=== PATIENT | female | born 1945 | race Caucasian/White ===

== ENCOUNTER 2018-07-19 11:20 | Emergency (ER) | payer MEDICARE ==
[~2018-07-19] VITALS: Ht 152.4 cm; Wt 73.9 kg
[2018-07-19 11:22] VITALS: BP_SYST 177
--- NOTE | 2018-07-19 11:22 | NUR ---
=Pt KYLEIGH [facility] and Placed in room 1. Placed on school bus monitor, blood pressure machine and pulse oximeter. To gown for exam. Side rails up. Addendum: 07/19/18 at 1129 by [email or web address] pt came in with 20 gauge to Left AC, placed by paramedics.
[2018-07-19] MEDS ORDERED: NITROGLYCERIN 1 INCH (GM) OINT. TP ONE (11:23)
[2018-07-19] MEDS ORDERED: MORPHINE 4 MG/ML INJ. SYRINGE IVP ONE (11:23)
--- NOTE | 2018-07-19 11:25 | NUR ---
Pt presents to ER brought in by [facility] and [facility], c/o chest pain 3/10 on pain scale that began this morning around 0800. Pt describes pain as non-radiating, pt denies sob, denies nausea or vomiting. Pt skin warm, dry. Pt reports taking 2 of Nitro at home, paramedics report giving 325mg of Aspirin en route to ER. Upon arrival pt describes pain as tolerable and rates as 3/10 on pain scale. Pt AOX4, speaking full sentences, respirations even and unlabored.
--- NOTE | 2018-07-19 11:25 | NUR ---
ER at bedside examining patient.
--- NOTE | 2018-07-19 11:35 | NUR ---
Pt refused administration of Morphine stating that it "does not make me feel good" and states that she would be ok without pain meds at the moment.
[2018-07-19 12:00] LABS: BASOPHILS % (AUTO) 0.5 % (0.0-2.0); EOSINOPHILS # (AUTO) 0.2 K/uL (0.0-0.4); EOSINOPHILS % (AUTO) 3.2 % (0.0-4.0); HEMATOCRIT 32.3 % (36-48); LYMPHOCYTES # (AUTO) 1.4 K/uL (1.0-5.5); MEAN CORPUSCULAR HEMOGLOBIN 30 pg (27-31); MEAN CORPUSCULAR HGB CONC 34 % (32-36); MEAN CORPUSCULAR VOLUME 88 fL (79.0-98.0); MONOCYTES # (AUTO) 0.3 K/uL (0.0-1.0); MONOCYTES % (AUTO) 3.9 % (1.7-9.3); NEUTROPHILS # (AUTO) 4.9 K/uL (1.8-7.7); NEUTROPHILS % (AUTO) 71.4 % (40.0-70.0); PLATELET COUNT (AUTO) 271 K/uL (130-430); RED BLOOD CELL COUNT(AUTO) 3.65 MIL/uL (4.2-6.2); RED CELL DISTRIBUTION WIDTH 14.2 % (9.0-15.0); WHITE BLOOD COUNT (AUTO) 6.8 K/uL (4.8-10.8)
[2018-07-19 12:11] LABS: ANION GAP 9 (5-15); CALCIUM 9.4 mg/dL (8.4-11.0); CHLORIDE 102 mmol/L (98-107); CREATININE 2.06 mg/dL (0.55-1.30); GLUCOSE 133 mg/dL (70-99); POTASSIUM 4.6 mmol/L (3.5-5.1); SODIUM SERUM 136 mmol/L (136-145); UREA NITROGEN, BLOOD 29 mg/dL (8-21)
[2018-07-19 12:15] LABS: INR 0.9 (0.8-1.2); PROTHROMBIN TIME 9.2 SECS (9.5-12.5)
[2018-07-19 12:16] LABS: ALANINE AMINOTRANSFERASE 38 U/L (12-78); ALBUMIN 3.1 g/dL (3.4-4.8); ASPARTATE AMINOTRANSFERASE 46 U/L (10-37); TOTAL BILIRUBIN 0.3 mg/dL (0.0-1.0)
--- NOTE | 2018-07-19 13:16 | NUR ---
Melisa from [facility] calls to inform that pt will be going to [facility] with the accepting physician Dr. Perez. Report to be called to [phone]. Pt to be transferred via ALS with ETA 14:15
--- NOTE | 2018-07-19 14:05 | NUR ---
Patient to be transferred to [facility]. Is being transferred due to higher level of care. Receiving facility has accepting physician and available space. ER physician has signed transfer form. Patient or responsible green party has agreed to transfer and signed form. Patient belongings inventoried and will be sent with patient. Copy of nursing notes, lab reports, EKG, Physicians Orders and X-rays to be sent with patient. Report called to Emmett at receiving facility. Receiving physician is Dr. Perez. [facility] ambulance service has been called for transfer.
[2018-07-19 14:10] VITALS: BP_SYST 136
== END 2018-07-19 14:10 | disposition short-term general hospital (02) ==
LOC: SED 11:20
DX: R07.89 Other chest pain (principal); E11.9 Type 2 diabetes mellitus without complications; I10 Essential (primary) hypertension; E03.9 Hypothyroidism, unspecified; E78.5 Hyperlipidemia, unspecified; K21.9 Gastro-esophageal reflux disease without esophagitis; F32.9 Major depressive disorder, single episode, unspecified; Z90.49 Acquired absence of other specified parts of digestive tract
CPT/HCPCS: 36415; 71045; 80053; 83880; 84484; 85025; 85379; 85610-TC; 85730-TC; 93005; 99285; J2270

== ENCOUNTER 2019-03-27 02:52 | Emergency (ER) | payer MEDICARE ==
[~2019-03-27] VITALS: Ht 152.4 cm; Wt 72.6 kg
[2019-03-27 02:56] VITALS: BP_SYST 142
[2019-03-27] MEDS ORDERED: NACL 0.9% 1,000 ML IV ONE (03:12)
[2019-03-27] MEDS ORDERED: DEXTROSE 50% JECT 50 ML DISP.SYRIN IVP ONE (03:15)
[2019-03-27 04:08] LABS: BASOPHILS # (AUTO) 0.1 K/uL (0.0-0.2); BASOPHILS % (AUTO) 0.8 % (0.0-2.0); EOSINOPHILS # (AUTO) 0.3 K/uL (0.0-0.4); EOSINOPHILS % (AUTO) 3.3 % (0.0-4.0); HEMATOCRIT 31.4 % (36-48); HEMOGLOBIN 10.5 g/dL (12.0-16.0); LYMPHOCYTES # (AUTO) 1.2 K/uL (1.0-5.5); LYMPHOCYTES % (AUTO) 15.1 % (20.5-51.5); MEAN CORPUSCULAR HEMOGLOBIN 30 pg (27-31); MEAN CORPUSCULAR HGB CONC 34 % (32-36); MEAN CORPUSCULAR VOLUME 90 fL (79.0-98.0); MONOCYTES # (AUTO) 0.6 K/uL (0.0-1.0); MONOCYTES % (AUTO) 8.2 % (1.7-9.3); NEUTROPHILS # (AUTO) 5.7 K/uL (1.8-7.7); NEUTROPHILS % (AUTO) 72.6 % (40.0-70.0); PLATELET COUNT (AUTO) 233 K/uL (130-430); RED BLOOD CELL COUNT(AUTO) 3.48 MIL/uL (4.2-6.2); RED CELL DISTRIBUTION WIDTH 15.1 % (9.0-15.0); WHITE BLOOD COUNT (AUTO) 7.9 K/uL (4.8-10.8)
[2019-03-27 04:18] LABS: ANION GAP 5 (5-15); CHLORIDE 101 mmol/L (98-107); CREATININE 1.58 mg/dL (0.55-1.30); GLUCOSE 114 mg/dL (70-99); POTASSIUM 3.4 mmol/L (3.5-5.1); SODIUM SERUM 134 mmol/L (136-145); UREA NITROGEN, BLOOD 38 mg/dL (8-21)
[2019-03-27 05:32] VITALS: BP_SYST 142
== END 2019-03-27 05:29 | disposition home or self-care (01) ==
LOC: SED 02:52
DX: E11.649 Type 2 diabetes mellitus with hypoglycemia without coma (principal); I12.9 Hypertensive chronic kidney disease with stage 1 through stage 4 chronic kidney disease, or unspecified chronic kidney disease; E11.22 Type 2 diabetes mellitus with diabetic chronic kidney disease; N18.9 Chronic kidney disease, unspecified; T38.3X5A Adverse effect of insulin and oral hypoglycemic [antidiabetic] drugs, initial encounter; Z85.038 Personal history of other malignant neoplasm of large intestine; Z90.49 Acquired absence of other specified parts of digestive tract; Y92.89 Other specified places as the place of occurrence of the external cause
CPT/HCPCS: 36415; 80048; 82962; 84484; 85025; 93005; 96361; 96374; 99284; J7030

== ENCOUNTER 2019-04-09 20:52 | Emergency (ER) | payer MEDICARE ==
[~2019-04-09] VITALS: Ht 152.4 cm; Wt 72.6 kg
[2019-04-09 20:55] VITALS: BP_SYST 160
--- NOTE | 2019-04-09 21:00 | NUR ---
Placed in room 1 . Placed on monitoring and evaluation advisor, blood pressure machine and pulse oximeter. To gown for exam. Side rails up. Report given to Mago GONSALVES.
--- NOTE | 2019-04-09 21:06 | NUR ---
PT AAOx4 ambulated into ED c/o 03/14 diffuse abdominal pain, vomiting, and diarrhea x 2 days. Pt denies dysuria/bloody emesis. Pt reports she takes daily iron and her stool is usually black in color. No other injuries/complaints per pt/noted. Will continue to monitor.
--- NOTE | 2019-04-09 21:27 | NUR ---
ER Dr. Hayes at bedside examining patient.
[2019-04-09 21:30] LABS: BASOPHILS % (AUTO) 0.3 % (0.0-2.0); EOSINOPHILS % (AUTO) 0.8 % (0.0-4.0); HEMATOCRIT 35.5 % (36-48); LYMPHOCYTES # (AUTO) 0.5 K/uL (1.0-5.5); LYMPHOCYTES % (AUTO) 7.9 % (20.5-51.5); MEAN CORPUSCULAR HEMOGLOBIN 31 pg (27-31); MEAN CORPUSCULAR HGB CONC 34 % (32-36); MEAN CORPUSCULAR VOLUME 91 fL (79.0-98.0); MONOCYTES # (AUTO) 0.4 K/uL (0.0-1.0); MONOCYTES % (AUTO) 6.5 % (1.7-9.3); NEUTROPHILS # (AUTO) 5.3 K/uL (1.8-7.7); NEUTROPHILS % (AUTO) 84.5 % (40.0-70.0); PLATELET COUNT (AUTO) 259 K/uL (130-430); RED CELL DISTRIBUTION WIDTH 15.5 % (9.0-15.0); WHITE BLOOD COUNT (AUTO) 6.3 K/uL (4.8-10.8)
[2019-04-09] MEDS ORDERED: ONDANSETRON HCL 4 MG/2 ML VIAL IVP ONE (21:30)
[2019-04-09] MEDS ORDERED: MORPHINE 2 MG/ML INJ. SYRINGE IVP ONE (21:30)
--- NOTE | 2019-04-09 21:42 | NUR ---
Pt had 1 episode of diarrhea on bed. Pt cleaned, changed, and assisted to position of comfort.
[2019-04-09] MEDS ORDERED: NS 500 ML IV ONE (21:45)
[2019-04-09 21:52] LABS: ANION GAP 9 (5-15); CALCIUM 8.9 mg/dL (8.4-11.0); CHLORIDE 101 mmol/L (98-107); CREATININE 1.98 mg/dL (0.55-1.30); GLUCOSE 259 mg/dL (70-99); POTASSIUM 4.2 mmol/L (3.5-5.1); SODIUM SERUM 133 mmol/L (136-145); UREA NITROGEN, BLOOD 43 mg/dL (8-21)
--- NOTE | 2019-04-09 22:02 | NUR ---
# 14 FR straight catheter with use of sterile technique. Immediate return of 50 cc yellow urine noted. Bedside drainage bag placed below level of bladder. Urine sample collected and sent to lab. Pt tolerated procedure well.
[2019-04-09 22:08] LABS: ALANINE AMINOTRANSFERASE 27 U/L (12-78); ALBUMIN 2.8 g/dL (3.4-4.8); ASPARTATE AMINOTRANSFERASE 21 U/L (10-37); LIPASE 155 U/L (73-393); TOTAL BILIRUBIN 0.4 mg/dL (0.0-1.0)
--- NOTE | 2019-04-09 22:17 | NUR ---
PT taken to radiology via gurney in stable condition
[2019-04-09 22:23] LABS: BILIRUBIN,URINE NEGATIVE (NEGATIVE); BLOOD, URINE NEGATIVE (NEGATIVE); CLARITY/URINE CLEAR (CLEAR); COLOR,URINE YELLOW (YELLOW); GLUCOSE,URINE NEGATIVE (NEGATIVE); KETONES,URINE NEGATIVE (NEGATIVE); LEUKOCYTE ESTERASE ,URINE TRACE (NEGATIVE); NITRITE, URINE NEGATIVE (NEGATIVE); PH,URINE 5.5 (5.0-8.0); PROTEIN URINE 2+ (NEGATIVE); UROBILINOGEN,URINE 0.2 (0.2-1.0)
[2019-04-09 22:31] LABS: BACTERIA,URINE MANY /HPF (None Seen); RBC,URINE 0-3 /HPF (0-3)
--- NOTE | 2019-04-09 22:52 | NUR ---
PT states she is feeling lightheaded. Room lights turned off per request. Dr. Hayes notified.
[2019-04-09] MEDS ORDERED: cefTRIAXone 1 GM VIAL IM ONE (23:15)
[2019-04-09] MEDS ORDERED: cefTRIAXone 1 GM in D5W 50 ML IV ONE (23:15)
--- NOTE | 2019-04-09 23:22 | NUR ---
Medications were given, pt toleratd well. No adverse reaction, will continue to monitor.
--- NOTE | 2019-04-09 23:23 | NUR ---
Report received from MAJOR Mercedes. All care endorsed.
[2019-04-09] MEDS ORDERED: cefTRIAXone 1 GM VIAL ONE (23:24)
[2019-04-10] MEDS ORDERED: AZITHROMYCIN 250 MG TABLET PO ONE
--- NOTE | 2019-04-10 00:10 | NUR ---
Dr. Hayes speaking with Dr. Sheffield from [facility] in regards to transferring patient.
--- NOTE | 2019-04-10 00:17 | NUR ---
Authorization number: [id number]
--- NOTE | 2019-04-10 00:41 | NUR ---
Medication was given, pt tolerated well. No adverse reaction, will continue to monitor.
[2019-04-10] MEDS ORDERED: fentaNYL CITRATE/PF 100 MCG/2 ML AMP IVP ONE (02:00)
[2019-04-10 02:46] VITALS: BP_SYST 145
--- NOTE | 2019-04-10 02:46 | NUR ---
Patient to be transferred to [facility]. Is being transferred due to higher level of care. Receiving facility has accepting physician and available space. ER physician has signed transfer form. Patient or responsible libertarian has agreed to transfer and signed form. Patient belongings inventoried and will be sent with patient. Copy of nursing notes, lab reports, EKG, Physicians Orders and X-rays to be sent with patient. Report called to Delio at receiving facility. Receiving physician is Dr. Melgar. [facility] ambulance service has been called for transfer.
--- NOTE | 2019-04-10 02:46 | NUR ---
Transfer to [facility]. IV present no signs or symptoms of infiltration.
== END 2019-04-10 02:46 | disposition short-term general hospital (02) ==
LOC: SED 20:52
DX: N39.0 Urinary tract infection, site not specified (principal); R10.13 Epigastric pain; R11.10 Vomiting, unspecified; R19.7 Diarrhea, unspecified
CPT/HCPCS: 36415; 71250; 74176; 80053; 81000; 82962; 83605; 83690; 84484; 85025; 87040; 87086; 93005; 96361; 96365; 96375; 99285; J0696; J2270; J2405; J3010; J7030; Q0144

== ENCOUNTER 2019-10-20 09:43 | Emergency (ER) | payer MEDICARE ==
[~2019-10-20] VITALS: Ht 152.4 cm; Wt 68.0 kg
[2019-10-20 09:49] VITALS: BP_SYST 130
--- NOTE | 2019-10-20 09:50 | NUR ---
Placed in room [address] recording monitor, blood pressure machine and pulse oximeter. To gown for exam. Side rails up.
--- NOTE | 2019-10-20 09:55 | NUR ---
GRACIELA Roe at bedside examining patient.
--- NOTE | 2019-10-20 09:58 | NUR ---
pt bib via BLS for graciela upper quadrant abd pain. Pt also reports dizziness w/ nausea. Pt also reports being treated for a yeast infection recently.
[2019-10-20] MEDS ORDERED: FLUCONAZOLE 200 MG TABLET (DIFLUCAN) PO ONE (10:00)
[2019-10-20] MEDS ORDERED: ONDANSETRON HCL 4 MG/2 ML VIAL IVP ONE (10:00)
[2019-10-20] MEDS ORDERED: NACL 0.9% 1,000 ML IV ONE (10:00)
--- NOTE | 2019-10-20 10:02 | NUR ---
# 20 gauge angiocath placed to RAC. Use of asceptic technique. Opsite placed over site. Blood return noted. Blood for lab drawn from site. Flushed with 10 cc of normal saline. No evidence of infiltration noted. Patient tolerated well.
--- NOTE | 2019-10-20 10:15 | NUR ---
medicated the pt w/ Zofran IVP. Will reassess
[2019-10-20 10:20] LABS: BASOPHILS # (AUTO) 0.1 K/uL (0.0-0.2); BASOPHILS % (AUTO) 1.4 % (0.0-2.0); EOSINOPHILS # (AUTO) 0.2 K/uL (0.0-0.4); EOSINOPHILS % (AUTO) 2.9 % (0.0-4.0); HEMOGLOBIN 10.7 g/dL (12.0-16.0); LYMPHOCYTES % (AUTO) 15.3 % (20.5-51.5); MEAN CORPUSCULAR HEMOGLOBIN 31 pg (27-31); MEAN CORPUSCULAR HGB CONC 34 % (32-36); MEAN CORPUSCULAR VOLUME 89 fL (79.0-98.0); MONOCYTES # (AUTO) 0.5 K/uL (0.0-1.0); MONOCYTES % (AUTO) 7.4 % (1.7-9.3); PLATELET COUNT (AUTO) 204 K/uL (130-430); RED BLOOD CELL COUNT(AUTO) 3.48 MIL/uL (4.2-6.2); RED CELL DISTRIBUTION WIDTH 15.1 % (9.0-15.0); WHITE BLOOD COUNT (AUTO) 6.9 K/uL (4.8-10.8)
[2019-10-20 10:27] LABS: ANION GAP 8 (5-15); CALCIUM 8.9 mg/dL (8.4-11.0); CHLORIDE 102 mmol/L (98-107); CREATININE 1.52 mg/dL (0.55-1.30); GLUCOSE 161 mg/dL (70-99); POTASSIUM 3.3 mmol/L (3.5-5.1); SODIUM SERUM 135 mmol/L (136-145); UREA NITROGEN, BLOOD 36 mg/dL (8-21)
[2019-10-20 10:32] LABS: ALANINE AMINOTRANSFERASE 22 U/L (12-78); ALBUMIN 2.7 g/dL (3.4-4.8); ASPARTATE AMINOTRANSFERASE 20 U/L (10-37); TOTAL BILIRUBIN 0.2 mg/dL (0.0-1.0)
[2019-10-20 10:43] LABS: BILIRUBIN,URINE NEGATIVE (NEGATIVE); CLARITY/URINE SL CLOUDY (CLEAR); COLOR,URINE YELLOW (YELLOW); GLUCOSE,URINE TRACE (NEGATIVE); KETONES,URINE NEGATIVE (NEGATIVE); LEUKOCYTE ESTERASE ,URINE NEGATIVE (NEGATIVE); NITRITE, URINE NEGATIVE (NEGATIVE); PH,URINE 5.5 (5.0-8.0); PROTEIN URINE 3+ (NEGATIVE); UROBILINOGEN,URINE 0.2 (0.2-1.0)
[2019-10-20] MEDS ORDERED: POTASSIUM CHLORIDE 10 MEQ TAB.PRT.SR PO ONE (10:45)
[2019-10-20 11:01] LABS: BLOOD, URINE TRACE (NEGATIVE)
[2019-10-20 11:10] LABS: BACTERIA,URINE MODERATE /HPF (None Seen); RBC,URINE 0-3 /HPF (0-3)
[2019-10-20] MEDS ORDERED: LACTULOSE 20 GM/30 ML UDC PO ONE (11:15)
--- NOTE | 2019-10-20 11:15 | NUR ---
UA obtained via straight cath. Sample collected and sent to the lab
--- NOTE | 2019-10-20 11:50 | NUR ---
Patient given written and verbal discharge instructions and verbalizes understanding. ER MD discussed with patient the results and treatment provided. Patient in stable condition. ID arm band removed. IV catheter removed intact and dressing applied, no active bleeding. Rx of Miralax given. Patient educated on pain management and to follow up with PMD. Pain Scale 3/10. Opportunity for questions provided and answered. Medication side effect fact sheet provided.
[2019-10-20 11:54] VITALS: BP_SYST 130
== END 2019-10-20 11:54 | disposition home or self-care (01) ==
LOC: SED 09:43
DX: K59.00 Constipation, unspecified (principal); R42 Dizziness and giddiness; B37.9 Candidiasis, unspecified; R11.0 Nausea; I10 Essential (primary) hypertension; E11.9 Type 2 diabetes mellitus without complications
CPT/HCPCS: 36415; 80053; 81000; 85025; 87086; 87186; 93005; 96374; 99284; J2405; J7030

== ENCOUNTER 2021-07-18 07:26 | Emergency (ER) | payer MEDICARE ==
[~2021-07-18] VITALS: Ht 154.9 cm; Wt 70.3 kg
[2021-07-18 07:30] VITALS: BP_SYST 162
--- NOTE | 2021-07-18 07:30 | NUR ---
BIB EMT FROM HOME FOR NAUSEA, CALM, ALERT, RESP UNLABORED, SKIN WARM AND DRY
--- NOTE | 2021-07-18 07:55 | NUR ---
DR MILLIGAN IN TO ASSESS
[2021-07-18] MEDS ORDERED: cloNIDine HCL 0.1 MG TABLET PO ONE (08:00)
[2021-07-18] MEDS ORDERED: KETOROLAC TROMETHAMINE 60 MG/2 ML VIAL IM ONE (08:00)
[2021-07-18] MEDS ORDERED: ONDANSETRON 4 MG ODT TAB PO ONE (08:00)
[2021-07-18 08:14] LABS: BASOPHILS # (AUTO) 0.1 K/uL (0.0-0.2); BASOPHILS % (AUTO) 0.8 % (0.0-2.0); EOSINOPHILS # (AUTO) 0.2 K/uL (0.0-0.4); EOSINOPHILS % (AUTO) 2.2 % (0.0-4.0); HEMATOCRIT 32.2 % (36-48); LYMPHOCYTES # (AUTO) 1.4 K/uL (1.0-5.5); LYMPHOCYTES % (AUTO) 19.4 % (20.5-51.5); MEAN CORPUSCULAR HEMOGLOBIN 31 pg (27-31); MEAN CORPUSCULAR HGB CONC 34 % (32-36); MEAN CORPUSCULAR VOLUME 90 fL (79.0-98.0); MONOCYTES # (AUTO) 0.4 K/uL (0.0-1.0); MONOCYTES % (AUTO) 6.4 % (1.7-9.3); NEUTROPHILS % (AUTO) 71.2 % (40.0-70.0); PLATELET COUNT (AUTO) 203 K/uL (130-430); RED BLOOD CELL COUNT(AUTO) 3.59 MIL/uL (4.2-6.2); RED CELL DISTRIBUTION WIDTH 14.1 % (9.0-15.0)
--- NOTE | 2021-07-18 08:15 | NUR ---
UP TO BSC, DENIES CP/SOB, CLEAR MENTATION AND SPEECH. NO DISTRESS
[2021-07-18 08:38] LABS: ANION GAP 8 (5-15); CALCIUM 8.8 mg/dL (8.4-11.0); CHLORIDE 98 mmol/L (98-107); CREATININE 2.92 mg/dL (0.55-1.30); POTASSIUM 4.2 mmol/L (3.5-5.1); SODIUM SERUM 134 mmol/L (136-145); UREA NITROGEN, BLOOD 47 mg/dL (8-21)
[2021-07-18 08:45] LABS: GLUCOSE 429 mg/dL (70-99)
[2021-07-18 08:48] LABS: ALANINE AMINOTRANSFERASE 17 U/L (12-78); ALBUMIN 2.5 g/dL (3.4-4.8); ASPARTATE AMINOTRANSFERASE 15 U/L (10-37); TOTAL BILIRUBIN 0.4 mg/dL (0.0-1.0)
[2021-07-18] MEDS ORDERED: INSULIN REGULAR, HUMAN 10 UNITS/0.1 ML INJ IVP ONE (09:00)
[2021-07-18] MEDS ORDERED: NACL 0.9% 1,000 ML IV ONE (09:00)
--- NOTE | 2021-07-18 09:00 | NUR ---
STATED FEELING BETTER, NO N,V. ALERT AND CALM, RESTING EASILY
[2021-07-18] MEDS ORDERED: ONDA-8 TL (09:20)
--- NOTE | 2021-07-18 09:50 | NUR ---
Patient given written and verbal discharge instructions and verbalizes understanding. ER MD discussed with patient the results and treatment provided. Patient in stable condition. ID arm band removed. IV catheter removed intact and dressing applied, no active bleeding. Patient educated on pain management and to follow up with PMD. Pain Scale . Opportunity for questions provided and answered.
[2021-07-18 10:21] VITALS: BP_SYST 156
[2021-07-18] MEDS ORDERED: LEVO750T45 PO (20:16)
== END 2021-07-18 10:21 | disposition home or self-care (01) ==
LOC: SED 07:26
DX: E11.65 Type 2 diabetes mellitus with hyperglycemia (principal); I10 Essential (primary) hypertension; Z79.899 Other long term (current) drug therapy
CPT/HCPCS: 36415; 71045; 80053; 82962; 83880; 84484; 85025; 96372; 96374; 99284; J1885; Q0162; 93005

== ENCOUNTER 2021-07-18 14:44 | Emergency (ER) | payer MEDICARE ==
[~2021-07-18] VITALS: Ht 152.4 cm; Wt 68.0 kg
[~2021-07-18 14:44] MED LIST: ONDA-8 TL
[2021-07-18 15:01] VITALS: BP_SYST 140
[2021-07-18 18:05] LABS: BASOPHILS # (AUTO) 0.1 K/uL (0.0-0.2); BASOPHILS % (AUTO) 0.7 % (0.0-2.0); EOSINOPHILS # (AUTO) 0.1 K/uL (0.0-0.4); EOSINOPHILS % (AUTO) 1.1 % (0.0-4.0); HEMATOCRIT 29.8 % (36-48); HEMOGLOBIN 10.2 g/dL (12.0-16.0); LYMPHOCYTES # (AUTO) 1.4 K/uL (1.0-5.5); MEAN CORPUSCULAR HEMOGLOBIN 30 pg (27-31); MEAN CORPUSCULAR HGB CONC 34 % (32-36); MEAN CORPUSCULAR VOLUME 88 fL (79.0-98.0); MONOCYTES # (AUTO) 0.6 K/uL (0.0-1.0); MONOCYTES % (AUTO) 7.4 % (1.7-9.3); NEUTROPHILS # (AUTO) 6.4 K/uL (1.8-7.7); NEUTROPHILS % (AUTO) 74.8 % (40.0-70.0); PLATELET COUNT (AUTO) 199 K/uL (130-430); RED BLOOD CELL COUNT(AUTO) 3.38 MIL/uL (4.2-6.2); RED CELL DISTRIBUTION WIDTH 13.8 % (9.0-15.0); WHITE BLOOD COUNT (AUTO) 8.6 K/uL (4.8-10.8)
[2021-07-18 18:28] LABS: ANION GAP 10 (5-15); CALCIUM 8.8 mg/dL (8.4-11.0); CHLORIDE 101 mmol/L (98-107); GLUCOSE 236 mg/dL (70-99); POTASSIUM 3.8 mmol/L (3.5-5.1); SODIUM SERUM 135 mmol/L (136-145); UREA NITROGEN, BLOOD 54 mg/dL (8-21)
[2021-07-18 18:34] LABS: ALANINE AMINOTRANSFERASE 17 U/L (12-78); ALBUMIN 2.4 g/dL (3.4-4.8); ASPARTATE AMINOTRANSFERASE 16 U/L (10-37); TOTAL BILIRUBIN 0.3 mg/dL (0.0-1.0)
[2021-07-18] MEDS ORDERED: NACL 0.9% 1,000 ML IV ONE (19:00)
[2021-07-18 19:04] LABS: BILIRUBIN,URINE NEGATIVE (NEGATIVE); BLOOD, URINE 2+ (NEGATIVE); CLARITY/URINE CLOUDY (CLEAR); COLOR,URINE YELLOW (YELLOW); GLUCOSE,URINE 2+ (NEGATIVE); KETONES,URINE NEGATIVE (NEGATIVE); LEUKOCYTE ESTERASE ,URINE 3+ (NEGATIVE); NITRITE, URINE NEGATIVE (NEGATIVE); PROTEIN URINE 3+ (NEGATIVE); UROBILINOGEN,URINE 0.2 (0.2-1.0)
[2021-07-18 19:25] LABS: BACTERIA,URINE MANY /HPF (None Seen); MUCUS,URINE None Seen /LPF (None Seen); RBC,URINE 20-50 /HPF (0-3); URINE AMORPHOUS URATE 4+ /HPF (None Seen); WBC,URINE >100 /HPF (0-3)
[2021-07-18] MEDS ORDERED: cefTRIAXone 1 GM in D5W 50 ML IV ONE (19:30)
[2021-07-18] MEDS ORDERED: cefTRIAXone 1 GM VIAL ONE (20:03)
[2021-07-18] MEDS ORDERED: LEVO750T45 PO (20:16)
[2021-07-19 02:13] VITALS: BP_SYST 138
== END 2021-07-18 21:47 | disposition home or self-care (01) ==
LOC: SED 14:44
DX: N12 Tubulo-interstitial nephritis, not specified as acute or chronic (principal); E11.65 Type 2 diabetes mellitus with hyperglycemia; I50.20 Unspecified systolic (congestive) heart failure; I10 Essential (primary) hypertension; Z79.899 Other long term (current) drug therapy
CPT/HCPCS: 36415; 80053; 81000; 82962; 83605; 83880; 84484; 85025; 87040; 87086; 96365; 99284; J0696; 93005

== ENCOUNTER 2023-04-27 13:13 | Emergency (ER) | payer MEDICARE ==
[~2023-04-27] VITALS: Ht 154.9 cm; Wt 77.1 kg
[~2023-04-27 13:13] MED LIST changes: +LEVO750T64 PO
[2023-04-27 13:15] VITALS: BP_SYST 165
[2023-04-27 15:31] LABS: BASOPHILS # (AUTO) 0.1 K/uL (0.0-0.2); BASOPHILS % (AUTO) 0.6 % (0.0-2.0); EOSINOPHILS # (AUTO) 0.1 K/uL (0.0-0.4); EOSINOPHILS % (AUTO) 0.6 % (0.0-4.0); HEMATOCRIT 31.1 % (36-48); HEMOGLOBIN 10.2 g/dL (12.0-16.0); LYMPHOCYTES # (AUTO) 0.6 K/uL (1.0-5.5); LYMPHOCYTES % (AUTO) 6.7 % (20.5-51.5); MEAN CORPUSCULAR HEMOGLOBIN 33 pg (27-31); MEAN CORPUSCULAR HGB CONC 33 % (32-36); MEAN CORPUSCULAR VOLUME 99 fL (79.0-98.0); MONOCYTES % (AUTO) 11.1 % (1.7-9.3); NEUTROPHILS # (AUTO) 7.1 K/uL (1.8-7.7); PLATELET COUNT (AUTO) 148 K/uL (130-430); RED BLOOD CELL COUNT(AUTO) 3.13 MIL/uL (4.2-6.2); RED CELL DISTRIBUTION WIDTH 16.6 % (9.0-15.0); WHITE BLOOD COUNT (AUTO) 8.8 K/uL (4.8-10.8)
[2023-04-27 15:37] LABS: ANION GAP 8 (5-15); CALCIUM 8.6 mg/dL (8.4-11.0); CHLORIDE 97 mmol/L (98-107); CREATININE 3.67 mg/dL (0.55-1.30); GLUCOSE 170 mg/dL (70-99); UREA NITROGEN, BLOOD 60 mg/dL (8-21)
[2023-04-27 15:44] LABS: ALANINE AMINOTRANSFERASE 34 U/L (12-78); ALBUMIN 2.9 g/dL (3.4-4.8); ASPARTATE AMINOTRANSFERASE 28 U/L (10-37); TOTAL BILIRUBIN 0.6 mg/dL (0.0-1.0)
[2023-04-27 18:25] VITALS: BP_SYST 156
== END 2023-04-27 18:25 | disposition home or self-care (01) ==
LOC: SED 13:13
DX: I12.9 Hypertensive chronic kidney disease with stage 1 through stage 4 chronic kidney disease, or unspecified chronic kidney disease (principal); E11.22 Type 2 diabetes mellitus with diabetic chronic kidney disease; N18.9 Chronic kidney disease, unspecified; M25.562 Pain in left knee; Z85.038 Personal history of other malignant neoplasm of large intestine; Z79.899 Other long term (current) drug therapy
CPT/HCPCS: 36415; 71045; 73564; 80053; 83880; 84484; 85025; 93005; 99285

== ENCOUNTER 2023-06-12 19:51 | Emergency (ER) | payer MEDICARE ==
[~2023-06-12] VITALS: Ht 152.4 cm; Wt 65.8 kg
[2023-06-12 20:16] VITALS: BP_SYST 144; PULSE 65; RESP 17; TEMP 97.1; O2SAT 95
[2023-06-12] MEDS ORDERED: ACETAMINOPHEN 325 MG TABLET PO ONE (21:15)
[2023-06-13 00:35] VITALS: BP_SYST 140; PULSE 68; RESP 15; TEMP 97.1; O2SAT 95
[2023-06-13] MEDS ORDERED: PROPOFOL DRIP 0 ML IV ONE (15:15)
== END 2023-06-13 00:35 | disposition short-term general hospital (02) ==
LOC: SED 19:51
DX: S70.01XA Contusion of right hip, initial encounter (principal); S05.91XA Unspecified injury of right eye and orbit, initial encounter; S09.90XA Unspecified injury of head, initial encounter; E11.9 Type 2 diabetes mellitus without complications; I10 Essential (primary) hypertension; Z85.038 Personal history of other malignant neoplasm of large intestine; Z79.899 Other long term (current) drug therapy; W22.8XXA Striking against or struck by other objects, initial encounter; X58.XXXA Exposure to other specified factors, initial encounter; Y93.89 Activity, other specified; Y92.89 Other specified places as the place of occurrence of the external cause; Y99.8 Other external cause status
CPT/HCPCS: 70450-TC; 70480; 73502; 76376; 99285; J2704

== ENCOUNTER 2023-08-11 17:39 | Emergency (ER) | payer MEDICARE ==
[~2023-08-11] VITALS: Ht 154.9 cm; Wt 63.5 kg
[2023-08-11 18:08] VITALS: BP_SYST 119; PULSE 72; RESP 19; TEMP 97.9; O2SAT 97
[2023-08-11 19:15] LABS: BASOPHILS % (AUTO) 0.6 % (0.0-2.0); EOSINOPHILS # (AUTO) 0.1 K/uL (0.0-0.4); EOSINOPHILS % (AUTO) 1.8 % (0.0-4.0); HEMATOCRIT 25.7 % (36-48); HEMOGLOBIN 8.4 g/dL (12.0-16.0); LYMPHOCYTES # (AUTO) 0.7 K/uL (1.0-5.5); LYMPHOCYTES % (AUTO) 10.8 % (20.5-51.5); MEAN CORPUSCULAR HEMOGLOBIN 33 pg (27-31); MEAN CORPUSCULAR HGB CONC 33 % (32-36); MEAN CORPUSCULAR VOLUME 100 fL (79.0-98.0); MONOCYTES # (AUTO) 0.7 K/uL (0.0-1.0); MONOCYTES % (AUTO) 10.7 % (1.7-9.3); NEUTROPHILS # (AUTO) 4.8 K/uL (1.8-7.7); NEUTROPHILS % (AUTO) 76.1 % (40.0-70.0); PLATELET COUNT (AUTO) 191 K/uL (130-430); RED BLOOD CELL COUNT(AUTO) 2.56 MIL/uL (4.2-6.2); RED CELL DISTRIBUTION WIDTH 16.9 % (9.0-15.0); WHITE BLOOD COUNT (AUTO) 6.3 K/uL (4.8-10.8)
[2023-08-11 19:27] LABS: ANION GAP 2 (5-15); CALCIUM 7.7 mg/dL (8.4-11.0); CARBON DIOXIDE 34 mmol/L (23-29); CHLORIDE 98 mmol/L (98-107); CREATININE 2.19 mg/dL (0.55-1.30); GLUCOSE 217 mg/dL (74-106); POTASSIUM 3.2 mmol/L (3.5-5.1); SODIUM SERUM 134 mmol/L (136-145); UREA NITROGEN, BLOOD 27 mg/dL (8-21)
[2023-08-11] MEDS ORDERED: LOPE2CAP PO (19:41)
[2023-08-11 20:35] VITALS: BP_SYST 143; PULSE 78; RESP 16; TEMP 98.1; O2SAT 95
== END 2023-08-11 20:35 | disposition home or self-care (01) ==
LOC: SED 17:39
DX: R04.0 Epistaxis (principal); R19.7 Diarrhea, unspecified; D64.9 Anemia, unspecified; E11.9 Type 2 diabetes mellitus without complications; I10 Essential (primary) hypertension; Z85.038 Personal history of other malignant neoplasm of large intestine; Z79.899 Other long term (current) drug therapy
CPT/HCPCS: 36415; 80048; 82962; 85025; 99283

== ENCOUNTER 2023-08-25 18:39 | Emergency (ER) | payer MEDICARE ==
[~2023-08-25] VITALS: Ht 152.4 cm; Wt 68.0 kg
[~2023-08-25 18:39] MED LIST changes: +LOPE2CAP PO
[2023-08-25 18:40] VITALS: BP_SYST 127; PULSE 87; RESP 18; TEMP 97.2; O2SAT 99
[2023-08-25 19:42] LABS: BASOPHILS # (AUTO) 0.1 K/uL (0.0-0.2); BASOPHILS % (AUTO) 1.4 % (0.0-2.0); EOSINOPHILS # (AUTO) 0.1 K/uL (0.0-0.4); EOSINOPHILS % (AUTO) 1.7 % (0.0-4.0); HEMATOCRIT 26.6 % (36-48); HEMOGLOBIN 8.5 g/dL (12.0-16.0); LYMPHOCYTES # (AUTO) 0.8 K/uL (1.0-5.5); LYMPHOCYTES % (AUTO) 15.9 % (20.5-51.5); MEAN CORPUSCULAR HEMOGLOBIN 33 pg (27-31); MEAN CORPUSCULAR HGB CONC 32 % (32-36); MEAN CORPUSCULAR VOLUME 103 fL (79.0-98.0); MONOCYTES # (AUTO) 0.6 K/uL (0.0-1.0); MONOCYTES % (AUTO) 13.1 % (1.7-9.3); NEUTROPHILS # (AUTO) 3.2 K/uL (1.8-7.7); NEUTROPHILS % (AUTO) 67.9 % (40.0-70.0); PLATELET COUNT (AUTO) 157 K/uL (130-430); RED BLOOD CELL COUNT(AUTO) 2.59 MIL/uL (4.2-6.2); RED CELL DISTRIBUTION WIDTH 17.5 % (9.0-15.0); WHITE BLOOD COUNT (AUTO) 4.7 K/uL (4.8-10.8)
[2023-08-25 19:45] LABS: ANION GAP 5 (5-15); CALCIUM 8.7 mg/dL (8.4-11.0); CARBON DIOXIDE 30 mmol/L (23-29); CHLORIDE 102 mmol/L (98-107); CREATININE 2.89 mg/dL (0.55-1.30); GLUCOSE 262 mg/dL (74-106); POTASSIUM 4.1 mmol/L (3.5-5.1); SODIUM SERUM 137 mmol/L (136-145); UREA NITROGEN, BLOOD 29 mg/dL (8-21)
[2023-08-25 19:49] LABS: ALANINE AMINOTRANSFERASE 22 U/L (12-78); ALBUMIN 2.1 g/dL (3.4-4.8); ASPARTATE AMINOTRANSFERASE 34 U/L (10-37); LIPASE 64 U/L (16-77); TOTAL BILIRUBIN 0.3 mg/dL (0.0-1.0); TOTAL PROTEIN, SERUM 5.4 g/dL (6.4-8.3)
[2023-08-25] MEDS ORDERED: NACL 0.9% 1,000 ML IV ONE (20:30)
[2023-08-25 22:49] LABS: BILIRUBIN,URINE NEGATIVE (NEGATIVE); BLOOD, URINE NEGATIVE (NEGATIVE); CLARITY/URINE SL CLOUDY (CLEAR); COLOR,URINE YELLOW (YELLOW); GLUCOSE,URINE NEGATIVE (NEGATIVE); KETONES,URINE NEGATIVE (NEGATIVE); LEUKOCYTE ESTERASE ,URINE 2+ (NEGATIVE); NITRITE, URINE NEGATIVE (NEGATIVE); PH,URINE 8.5 (5.0-8.0); PROTEIN URINE 2+ (NEGATIVE); UROBILINOGEN,URINE 0.2 (0.2-1.0)
[2023-08-25 23:05] LABS: BACTERIA,URINE FEW /HPF (None Seen); MUCUS,URINE None Seen /LPF (None Seen); RBC,URINE 0-3 /HPF (0-3); WBC,URINE 50-80 /HPF (0-3)
[2023-08-25] MEDS ORDERED: SULF1TAB48 PO (23:40)
[2023-08-25] MEDS ORDERED: SULFAMETHOXAZOLE/TRIMETHOPR DS 1 TABLET PO ONE (23:45)
[2023-08-26 01:03] VITALS: BP_SYST 131; PULSE 65; RESP 18; TEMP 98; O2SAT 95
== END 2023-08-26 01:03 | disposition home or self-care (01) ==
LOC: SED 18:39
DX: R10.11 Right upper quadrant pain (principal); R07.81 Pleurodynia; I12.9 Hypertensive chronic kidney disease with stage 1 through stage 4 chronic kidney disease, or unspecified chronic kidney disease; E11.22 Type 2 diabetes mellitus with diabetic chronic kidney disease; N18.9 Chronic kidney disease, unspecified; Z85.038 Personal history of other malignant neoplasm of large intestine; Z79.899 Other long term (current) drug therapy
CPT/HCPCS: 99285; 96360; 76705; 80053; 81001; 83690; 85025; 87086; 36415; 81000; 81015; J7030

== ENCOUNTER 2023-11-27 11:20 | Emergency (ER) | payer MEDICARE ==
[~2023-11-27] VITALS: Ht 157.5 cm; Wt 61.2 kg
[~2023-11-27 11:20] MED LIST changes: +SULF1TAB48 PO
[2023-11-27 11:30] VITALS: BP_SYST 107; PULSE 82; RESP 18; TEMP 96.8; O2SAT 96
[2023-11-27 12:08] LABS: BASOPHILS % (AUTO) 0.2 % (0.0-2.0); EOSINOPHILS % (AUTO) 0.2 % (0.0-4.0); HEMOGLOBIN 8.7 g/dL (12.0-16.0); LYMPHOCYTES # (AUTO) 0.5 K/uL (1.0-5.5); LYMPHOCYTES % (AUTO) 4.6 % (20.5-51.5); MEAN CORPUSCULAR HEMOGLOBIN 32 pg (27-31); MEAN CORPUSCULAR HGB CONC 33 % (32-36); MEAN CORPUSCULAR VOLUME 95 fL (79.0-98.0); MONOCYTES # (AUTO) 0.6 K/uL (0.0-1.0); NEUTROPHILS # (AUTO) 10.1 K/uL (1.8-7.7); PLATELET COUNT (AUTO) 180 K/uL (130-430); RED BLOOD CELL COUNT(AUTO) 2.73 MIL/uL (4.2-6.2); RED CELL DISTRIBUTION WIDTH 16.6 % (9.0-15.0); WHITE BLOOD COUNT (AUTO) 11.2 K/uL (4.8-10.8)
[2023-11-27] MEDS ORDERED: NOR10 PO (12:20)
[2023-11-27 12:23] LABS: ANION GAP 10 (5-15); CALCIUM 10.2 mg/dL (8.4-11.0); CARBON DIOXIDE 31 mmol/L (23-29); CHLORIDE 100 mmol/L (98-107); CREATININE 3.35 mg/dL (0.55-1.30); GLUCOSE 60 mg/dL (74-106); POTASSIUM 3.6 mmol/L (3.5-5.1); SODIUM SERUM 141 mmol/L (136-145); UREA NITROGEN, BLOOD 36 mg/dL (8-21)
[2023-11-27 12:26] LABS: PROTHROMBIN TIME 10.8 SECS (9.5-12.5)
[2023-11-27 12:36] LABS: ALANINE AMINOTRANSFERASE 10 U/L (12-78); ASPARTATE AMINOTRANSFERASE 30 U/L (10-37); BILIRUBIN,DIRECT 0.3 mg/dL (0.0-0.3); CREATINE KINASE, TOTAL 122 U/L (26-192); FREE T4 (FREE THYROXINE) 1.4 ng/dL (0.6-1.6); THYROID STIMULATING HORMONE 4.07 uIu/mL (0.34-4.82); TOTAL BILIRUBIN 0.6 mg/dL (0.0-1.0); TOTAL PROTEIN, SERUM 7.3 g/dL (6.4-8.3)
[2023-11-27 12:43] LABS: ACETONE, SERUM NEGATIVE (NEGATIVE)
[2023-11-27] MEDS ORDERED: CALC0.258 PO (12:46)
[2023-11-27] MEDS ORDERED: EFF37 PO (12:46)
[2023-11-27] MEDS ORDERED: ISOS30TA85 PO (12:46)
[2023-11-27] MEDS ORDERED: SYN50 PO (12:46)
[2023-11-27] MEDS ORDERED: DONE5TAB33 PO (12:46)
[2023-11-27] MEDS ORDERED: FURO40SO5 PO (12:46)
[2023-11-27] MEDS ORDERED: TRAZ150T77 PO (12:46)
[2023-11-27] MEDS ORDERED: MECO10005 (12:46)
[2023-11-27] MEDS ORDERED: ASPI-1393 PO (12:46)
[2023-11-27] MEDS ORDERED: INSU100V7 SUBCUT (12:46)
[2023-11-27] MEDS ORDERED: BISO5TAB15 PO (12:46)
[2023-11-27] MEDS ORDERED: HYDR100T25 PO (12:46)
[2023-11-27] MEDS ORDERED: SEVE800T8 PO (12:46)
[2023-11-27] MEDS ORDERED: LOSA-415 PO (12:46)
[2023-11-27] MEDS ORDERED: LIP40 PO (12:46)
[2023-11-27] MEDS ORDERED: B1/B1TAB5 PO (12:46)
[2023-11-27] MEDS ORDERED: cefTRIAXone 1 GM in D5W 50 ML IV ONE (13:45)
[2023-11-27 13:48] LABS: BILIRUBIN,URINE NEGATIVE (NEGATIVE); BLOOD, URINE NEGATIVE (NEGATIVE); CLARITY/URINE CLEAR (CLEAR); COLOR,URINE YELLOW (YELLOW); GLUCOSE,URINE NEGATIVE (NEGATIVE); KETONES,URINE TRACE (NEGATIVE); LEUKOCYTE ESTERASE ,URINE NEGATIVE (NEGATIVE); NITRITE, URINE NEGATIVE (NEGATIVE); PH,URINE 7.5 (5.0-8.0); PROTEIN URINE 2+ (NEGATIVE); UROBILINOGEN,URINE 0.2 (0.2-1.0)
[2023-11-27 14:06] LABS: BACTERIA,URINE RARE /HPF (None Seen); HYALINE CASTS, URINE 0-10 /LPF (None Seen); MUCUS,URINE 1+ /LPF (None Seen); RBC,URINE 0-3 /HPF (0-3)
[2023-11-27] MEDS ORDERED: cefTRIAXone 1 GM VIAL ONE (14:46)
[2023-11-27] MEDS ORDERED: LORazepam 2 MG/ML VIAL IVP ONE (15:15)
[2023-11-27 17:18] VITALS: BP_SYST 127; PULSE 76; RESP 18; TEMP 97.8; O2SAT 92
== END 2023-11-27 17:18 | disposition short-term general hospital (02) ==
LOC: SED 11:20
DX: N39.0 Urinary tract infection, site not specified (principal); N19 Unspecified kidney failure; R62.7 Adult failure to thrive; R79.89 Other specified abnormal findings of blood chemistry; R53.1 Weakness; E11.9 Type 2 diabetes mellitus without complications; I10 Essential (primary) hypertension; Z85.038 Personal history of other malignant neoplasm of large intestine; Z79.899 Other long term (current) drug therapy; Z20.822 Contact with and (suspected) exposure to COVID-19
CPT/HCPCS: 99285; 96365; 71045; 96375; 87426; 80076; 80048; 81001; 82009; 82550; 84439; 84443; 85025; 85610; 85730; 87040; 87086; 84484; 36415; 93005; 83605; 81000; 81015; J0696; J2060

== ENCOUNTER 2024-01-06 14:54 | Inpatient (IN) | payer MEDICARE ==
[~2024-01-06] VITALS: Ht 154.9 cm; Wt 54.0 kg
[~2024-01-06 14:54] MED LIST changes: +ASPI-1393 PO; +B1/B1TAB5 PO; +BISO5TAB15 PO; +CALC0.258 PO; +DONE5TAB33 PO; +EFF37 PO; +FURO40SO5 PO; +HYDR100T25 PO; +INSU100V7 SUBCUT; +ISOS30TA85 PO; -LEVO750T64 PO; +LIP40 PO; -LOPE2CAP PO; +LOSA-415 PO; +MECO10005; +NOR10 PO; +SEVE800T8 PO; -SULF1TAB48 PO; +SYN50 PO; +TRAZ150T77 PO
[2024-01-06 16:01] LABS: BASOPHILS # (AUTO) 0.1 K/uL (0.0-0.2); EOSINOPHILS # (AUTO) 0.2 K/uL (0.0-0.4); EOSINOPHILS % (AUTO) 2.6 % (0.0-4.0); HEMATOCRIT 33.1 % (36-48); HEMOGLOBIN 11.1 g/dL (12.0-16.0); LYMPHOCYTES # (AUTO) 0.6 K/uL (1.0-5.5); LYMPHOCYTES % (AUTO) 10.1 % (20.5-51.5); MEAN CORPUSCULAR HEMOGLOBIN 33 pg (27-31); MEAN CORPUSCULAR HGB CONC 34 % (32-36); MEAN CORPUSCULAR VOLUME 99 fL (79.0-98.0); MONOCYTES # (AUTO) 0.4 K/uL (0.0-1.0); MONOCYTES % (AUTO) 7.4 % (1.7-9.3); NEUTROPHILS # (AUTO) 4.8 K/uL (1.8-7.7); NEUTROPHILS % (AUTO) 78.9 % (40.0-70.0); PLATELET COUNT (AUTO) 192 K/uL (130-430); RED BLOOD CELL COUNT(AUTO) 3.34 MIL/uL (4.2-6.2); RED CELL DISTRIBUTION WIDTH 16.6 % (9.0-15.0)
[2024-01-06 16:09] LABS: ANION GAP 5 (5-15); CALCIUM 10.1 mg/dL (8.4-11.0); CARBON DIOXIDE 35 mmol/L (23-29); CHLORIDE 99 mmol/L (98-107); CREATININE 2.63 mg/dL (0.55-1.30); GLUCOSE 188 mg/dL (74-106); POTASSIUM 3.2 mmol/L (3.5-5.1); SODIUM SERUM 139 mmol/L (136-145); UREA NITROGEN, BLOOD 26 mg/dL (8-21)
[2024-01-06 16:12] LABS: INR 1.1 (0.8-1.2); PROTHROMBIN TIME 11.1 SECS (9.5-12.5)
[2024-01-06 16:38] LABS: BILIRUBIN,URINE NEGATIVE (NEGATIVE); BLOOD, URINE 2+ (NEGATIVE); CLARITY/URINE SL CLOUDY (CLEAR); COLOR,URINE YELLOW (YELLOW); GLUCOSE,URINE NEGATIVE (NEGATIVE); KETONES,URINE NEGATIVE (NEGATIVE); LEUKOCYTE ESTERASE ,URINE 3+ (NEGATIVE); NITRITE, URINE NEGATIVE (NEGATIVE); PROTEIN URINE 2+ (NEGATIVE); UROBILINOGEN,URINE 0.2 (0.2-1.0)
[2024-01-06 16:43] LABS: ALANINE AMINOTRANSFERASE 12 U/L (12-78); ALBUMIN 3.1 g/dL (3.4-4.8); AMYLASE 34 U/L (0-100); ASPARTATE AMINOTRANSFERASE 14 U/L (10-37); BILIRUBIN,DIRECT 0.2 mg/dL (0.0-0.3); LIPASE 45 U/L (16-77); TOTAL BILIRUBIN 0.5 mg/dL (0.0-1.0); TOTAL PROTEIN, SERUM 6.7 g/dL (6.4-8.3)
[2024-01-06 16:49] LABS: BACTERIA,URINE MODERATE /HPF (None Seen); MUCUS,URINE None Seen /LPF (None Seen); WBC,URINE 80-100 /HPF (0-3)
[2024-01-06] MEDS ORDERED: HYDROcodone/ACETAMIN 5-325 MG TAB (NORCO/ VICODIN) PO PRN (17:30)
[2024-01-06] MEDS ORDERED: ACETAMINOPHEN 325 MG TABLET PO PRN (17:30)
[2024-01-06] MEDS: ASPIRIN 81 MG TABLET(ECOTRIN) PO ONE (17:41)
[2024-01-06] MEDS: HYDROcodone/ACETAMIN 10-325 MG TAB PO PRN (17:42)
[2024-01-06] MEDS ORDERED: TRANEXAMIC ACID 1,000 MG/10 ML VIAL ONE (18:49)
[2024-01-06 20:26] VITALS: BP_SYST 146; PULSE 89; RESP 16; TEMP 97.2; O2SAT 98
[2024-01-06] MEDS ORDERED: hydrALAZINE HCL 20 MG/ML VIAL IVP PRN (22:00)
[2024-01-06] MEDS ORDERED: HEPARIN SODIUM,PORCINE 3000 UNITS/0.6 ML BOLUS IVP PRN (23:15)
[2024-01-06] MEDS ORDERED: HEPARIN SODIUM,PORCINE 2000 UNITS/0.4 ML BOLUS IVP PRN (23:15)
[2024-01-06] MEDS: ATORVASTATIN 20 MG TABLET PO SCH (23:43)
[2024-01-06] MEDS: ASPIRIN 81 MG TAB.CHEW PO ONE (23:43)
[2024-01-06] MEDS: CARVEDILOL 6.25 MG TABLET (COREG) PO SCH (23:43)
[2024-01-06] MEDS: HEPARIN SODIUM,PORCINE 5,000 UNITS/ML VIAL IVP SCH (23:55)
[2024-01-07] VITALS (8 sets, daily range): BP systolic 134–159; PULSE 77–96; RESP 17–19; TEMP 96.6–98.4; O2SAT 97–99
[2024-01-07] MEDS: HEPARIN 25,000 UNITS in 250 ML PREMIX IV PRN (00:01)
[2024-01-07] MEDS: PANTOPRAZOLE SODIUM 40 MG TAB PO SCH (08:28)
[2024-01-07] MEDS: ASPIRIN 81 MG TABLET(ECOTRIN) PO SCH (08:28)
[2024-01-07] MEDS ORDERED: LORazepam 2 MG/ML VIAL IVP PRN (10:00)
[2024-01-07] MEDS ORDERED: B2 PO SCH (10:00)
[2024-01-07] MEDS ORDERED: B1 PO SCH (10:00)
[2024-01-07] MEDS ORDERED: B12 PO SCH (10:00)
[2024-01-07] MEDS ORDERED: PROTEASE PO SCH (10:00)
[2024-01-07] MEDS ORDERED: [UNRECOGNIZED DRUG - OTHER] PO SCH (10:00)
[2024-01-07] MEDS ORDERED: NIACIN PO SCH (10:00)
[2024-01-07] MEDS ORDERED: ONDANSETRON HCL 4 MG/2 ML VIAL IVP PRN (10:00)
[2024-01-07] MEDS ORDERED: ASPIRIN 81 MG TABLET(ECOTRIN) PO SCH (10:00)
[2024-01-07 10:21] LABS: BASOPHILS % (AUTO) 0.5 % (0.0-2.0); EOSINOPHILS # (AUTO) 0.2 K/uL (0.0-0.4); EOSINOPHILS % (AUTO) 3.7 % (0.0-4.0); HEMATOCRIT 29.8 % (36-48); LYMPHOCYTES # (AUTO) 0.5 K/uL (1.0-5.5); LYMPHOCYTES % (AUTO) 8.4 % (20.5-51.5); MEAN CORPUSCULAR HEMOGLOBIN 33 pg (27-31); MEAN CORPUSCULAR HGB CONC 34 % (32-36); MEAN CORPUSCULAR VOLUME 99 fL (79.0-98.0); MONOCYTES # (AUTO) 0.5 K/uL (0.0-1.0); MONOCYTES % (AUTO) 7.4 % (1.7-9.3); PLATELET COUNT (AUTO) 155 K/uL (130-430); RED BLOOD CELL COUNT(AUTO) 3.03 MIL/uL (4.2-6.2); RED CELL DISTRIBUTION WIDTH 16.4 % (9.0-15.0); WHITE BLOOD COUNT (AUTO) 6.2 K/uL (4.8-10.8)
[2024-01-07 10:34] LABS: ALANINE AMINOTRANSFERASE 11 U/L (12-78); ALBUMIN 2.8 g/dL (3.4-4.8); ANION GAP 5 (5-15); ASPARTATE AMINOTRANSFERASE 23 U/L (10-37); CARBON DIOXIDE 33 mmol/L (23-29); CHLORIDE 99 mmol/L (98-107); CREATININE 2.96 mg/dL (0.55-1.30); GLUCOSE 157 mg/dL (74-106); POTASSIUM 3.8 mmol/L (3.5-5.1); SODIUM SERUM 137 mmol/L (136-145); TOTAL BILIRUBIN 0.4 mg/dL (0.0-1.0); TOTAL PROTEIN, SERUM 6.2 g/dL (6.4-8.3); UREA NITROGEN, BLOOD 30 mg/dL (8-21)
[2024-01-07] MEDS: LEVOTHYROXINE SODIUM 0.05 MG TABLET PO ONE (11:38)
[2024-01-07] MEDS: VITAMIN B COMPLEX 1 CAP/TAB PO ONE (11:38)
[2024-01-07] MEDS: amLODIPine BESYLATE 10 MG TABLET PO ONE (11:41)
[2024-01-07] MEDS: ISOSORBIDE MONONITRATE 30 MG TAB.ER.24H PO ONE (11:42)
[2024-01-07] MEDS: CYANOCOBALAMIN (VITAMIN B-12) 1,000 MCG TABLET PO ONE (11:43)
[2024-01-07] MEDS: INSULIN REGULAR, HUMAN 100 UNITS/ML, 3 ML VIAL (humuLIN R) SUBCUT PRN (11:50)
[2024-01-07] MEDS: Effexor 37.5 MG TAB PO ONE (12:19)
[2024-01-07] MEDS: calcitrioL 0.25 MCG CAPSULE PO ONE (12:23)
[2024-01-07] MEDS: SEVELAMER CARBONATE 800 MG TABLET PO SCH (12:55)
[2024-01-07] MEDS: cefTRIAXone 1 GM IVPB PREMIX 50 ML IV ONE (12:55)
[2024-01-07] MEDS: NORMAL SALINE 5 ML DISP.SYRIN IVF SCH (12:56)
[2024-01-07] MEDS ORDERED: DONE10TA44 PO (13:50)
[2024-01-07] MEDS ORDERED: CYAN500T47 PO (13:50)
[2024-01-07] MEDS ORDERED: ERGO1250 PO (13:50)
[2024-01-07] MEDS ORDERED: FURO40TA5 PO (13:50)
[2024-01-07] MEDS ORDERED: VITA1CAP PO (13:50)
[2024-01-07] MEDS ORDERED: VENL150C4 PO (13:50)
[2024-01-07] MEDS ORDERED: ISOS10TA8 PO (13:50)
[2024-01-07] MEDS ORDERED: ISOS30TA9 PO (14:00)
[2024-01-07] MEDS ORDERED: ATOR-1 PO (14:36)
[2024-01-07] MEDS: hydrALAZINE HCL 25 MG TABLET PO SCH (14:39)
[2024-01-07] MEDS ORDERED: traZODone HCL 50 MG TABLET (DESYREL) PO SCH (21:00)
[2024-01-07] MEDS: LOSARTAN POTASSIUM 50 MG TABLET (COZAAR) PO SCH (21:00)
[2024-01-07] MEDS ORDERED: ATORVASTATIN 20 MG TABLET PO SCH (21:00)
[2024-01-07] MEDS ORDERED: DONEPEZIL HCL 5 MG TABLET (ARICEPT) PO SCH (21:00)
[2024-01-07] MEDS: CARVEDILOL 12.5 MG TABLET (COREG) PO SCH (21:00)
[2024-01-07] MEDS ORDERED: BISOPROLOL FUMARATE 5 MG TABLET PO SCH (21:00)
[2024-01-07] MEDS ORDERED: *HEPARIN PER PHARMACY XX PRN (22:00)
[2024-01-07] MEDS ORDERED: HEPARIN SODIUM,PORCINE 5,000 UNITS/ML VIAL IVP ONE (23:15)
[2024-01-08] MEDS ORDERED: LEVOTHYROXINE SODIUM 0.05 MG TABLET PO SCH (07:00)
[2024-01-08] MEDS ORDERED: PANTOPRAZOLE SODIUM 40 MG/VIAL (PROTONIX) IVP SCH (09:00)
[2024-01-08] MEDS ORDERED: ISOSORBIDE MONONITRATE 30 MG TAB.ER.24H PO SCH (09:00)
[2024-01-08] MEDS ORDERED: cefTRIAXone 1 GM IVPB PREMIX 50 ML IV SCH (09:00)
[2024-01-08] MEDS ORDERED: CYANOCOBALAMIN (VITAMIN B-12) 1,000 MCG TABLET PO SCH (09:00)
[2024-01-08] MEDS ORDERED: Effexor 37.5 MG TAB PO SCH (09:00)
[2024-01-08] MEDS ORDERED: VITAMIN B COMPLEX 1 CAP/TAB PO SCH (09:00)
[2024-01-08] MEDS ORDERED: amLODIPine BESYLATE 10 MG TABLET PO SCH (09:00)
[2024-01-09] MEDS ORDERED: calcitrioL 0.25 MCG CAPSULE PO SCH (12:00)
[2024-01-09] MEDS ORDERED: EPOETIN ALFA-EPBX 4,000 UNITS/ML VIAL SUBCUT SCH (17:00)
== END 2024-01-07 22:10 | disposition short-term general hospital (02) | DRG 280 ==
LOC: SED 14:54 → STU 17:21
PROVIDERS: ADMIT Preventive Medicine Preventive Medicine/Occupational Environmental Medicine; ATTEND Preventive Medicine Preventive Medicine/Occupational Environmental Medicine
PROC: 5A1D70Z Performance of Urinary Filtration, Intermittent, Less than 6 Hours Per Day (ICD-10-PCS; principal; 2024-01-07)
DX: I21.4 Non-ST elevation (NSTEMI) myocardial infarction (principal); N18.6 End stage renal disease; N17.9 Acute kidney failure, unspecified; N39.0 Urinary tract infection, site not specified; I12.0 Hypertensive chronic kidney disease with stage 5 chronic kidney disease or end stage renal disease; Z20.822 Contact with and (suspected) exposure to COVID-19; F03.90 Unspecified dementia, unspecified severity, without behavioral disturbance, psychotic disturbance, mood disturbance, and anxiety; I25.10 Atherosclerotic heart disease of native coronary artery without angina pectoris; E03.9 Hypothyroidism, unspecified; E78.5 Hyperlipidemia, unspecified; N31.9 Neuromuscular dysfunction of bladder, unspecified; D63.1 Anemia in chronic kidney disease; E87.6 Hypokalemia; E11.65 Type 2 diabetes mellitus with hyperglycemia; E88.09 Other disorders of plasma-protein metabolism, not elsewhere classified; E11.22 Type 2 diabetes mellitus with diabetic chronic kidney disease; Z85.038 Personal history of other malignant neoplasm of large intestine; Z90.49 Acquired absence of other specified parts of digestive tract; Z99.2 Dependence on renal dialysis
CPT/HCPCS: 36415; 80048; 80053; 80076; 81000; 81001; 81015; 82150; 82948; 83690; 84484; 85025; 85610; 85730; 87040; 87086; 90935; 93005; 93306; 99285; G0378; J0696; J1644; J1815; J3490

== ENCOUNTER 2024-01-15 14:08 | Inpatient (IN) | payer MEDICARE ==
[~2024-01-15] VITALS: Ht 124.5 cm; Wt 43.1 kg
[~2024-01-15 14:08] MED LIST changes: +ATOR-1 PO; -B1/B1TAB5 PO; +CYAN500T47 PO; +DONE10TA44 PO; -DONE5TAB33 PO; -EFF37 PO; +ERGO1250 PO; -FURO40SO5 PO; +FURO40TA5 PO; -LIP40 PO; -MECO10005; -ONDA-8 TL; +VENL150C4 PO; +VITA1CAP PO
[2024-01-15 14:27] VITALS: BP_SYST 165; PULSE 78; RESP 18; TEMP 97.8; O2SAT 100
[2024-01-15 15:22] LABS: BASOPHILS # (AUTO) 0.1 K/uL (0.0-0.2); EOSINOPHILS # (AUTO) 0.1 K/uL (0.0-0.4); EOSINOPHILS % (AUTO) 1.8 % (0.0-4.0); HEMATOCRIT 38.6 % (36-48); HEMOGLOBIN 12.9 g/dL (12.0-16.0); LYMPHOCYTES # (AUTO) 0.8 K/uL (1.0-5.5); LYMPHOCYTES % (AUTO) 15.1 % (20.5-51.5); MEAN CORPUSCULAR HEMOGLOBIN 33 pg (27-31); MEAN CORPUSCULAR HGB CONC 34 % (32-36); MEAN CORPUSCULAR VOLUME 100 fL (79.0-98.0); MONOCYTES # (AUTO) 0.6 K/uL (0.0-1.0); MONOCYTES % (AUTO) 10.3 % (1.7-9.3); NEUTROPHILS # (AUTO) 3.9 K/uL (1.8-7.7); NEUTROPHILS % (AUTO) 71.8 % (40.0-70.0); PLATELET COUNT (AUTO) 225 K/uL (130-430); RED BLOOD CELL COUNT(AUTO) 3.88 MIL/uL (4.2-6.2); RED CELL DISTRIBUTION WIDTH 16.8 % (9.0-15.0); WHITE BLOOD COUNT (AUTO) 5.4 K/uL (4.8-10.8)
[2024-01-15 15:40] LABS: ANION GAP 7 (5-15); CALCIUM 9.6 mg/dL (8.4-11.0); CARBON DIOXIDE 33 mmol/L (23-29); CHLORIDE 99 mmol/L (98-107); CREATININE 2.82 mg/dL (0.55-1.30); GLUCOSE 172 mg/dL (74-106); POTASSIUM 3.3 mmol/L (3.5-5.1); SODIUM SERUM 139 mmol/L (136-145); UREA NITROGEN, BLOOD 23 mg/dL (8-21)
[2024-01-15 15:44] LABS: ALANINE AMINOTRANSFERASE 22 U/L (12-78); ALBUMIN 3.4 g/dL (3.4-4.8); ASPARTATE AMINOTRANSFERASE 16 U/L (10-37); BILIRUBIN,DIRECT 0.2 mg/dL (0.0-0.3); LIPASE 106 U/L (16-77); TOTAL BILIRUBIN 0.6 mg/dL (0.0-1.0); TOTAL PROTEIN, SERUM 7.2 g/dL (6.4-8.3)
[2024-01-15 15:53] LABS: BILIRUBIN,URINE 1+ (NEGATIVE); BLOOD, URINE NEGATIVE (NEGATIVE); CLARITY/URINE CLEAR (CLEAR); COLOR,URINE YELLOW (YELLOW); GLUCOSE,URINE NEGATIVE (NEGATIVE); KETONES,URINE TRACE (NEGATIVE); LEUKOCYTE ESTERASE ,URINE 1+ (NEGATIVE); NITRITE, URINE POSITIVE (NEGATIVE); PH,URINE 5.5 (5.0-8.0); PROTEIN URINE 1+ (NEGATIVE); UROBILINOGEN,URINE 0.2 (0.2-1.0)
[2024-01-15 16:09] LABS: YEAST,URINE Few /HPF (None Seen)
[2024-01-15 16:10] LABS: RBC,URINE 0-3 /HPF (0-3)
[2024-01-15 16:11] LABS: BACTERIA,URINE FEW /HPF (None Seen)
[2024-01-15] MEDS: cefTRIAXone 1 GM VIAL IM ONE (17:55)
[2024-01-15] MEDS: POTASSIUM CHLORIDE 20 MEQ/PKT PACKET PO ONE (20:09)
[2024-01-15] MEDS ORDERED: HYDROcodone/ACETAMIN 5-325 MG TAB (NORCO/ VICODIN) PO PRN (21:00)
[2024-01-15] MEDS ORDERED: DEXTROSE 50% JECT 50 ML DISP.SYRIN IVP PRN (21:00)
[2024-01-15] MEDS ORDERED: IPRATROPIUM BROM 0.5 MG/2.5 ML VIAL.NEB (ATROVENT) INH PRN (21:00)
[2024-01-15] MEDS ORDERED: ONDANSETRON HCL 4 MG/2 ML VIAL IVP PRN (21:00)
[2024-01-15] MEDS ORDERED: ALBUTEROL SULFATE 0.083% 2.5 MG/3 ML VIAL.NEB INH PRN (21:00)
[2024-01-15] MEDS ORDERED: HYDROcodone/ACETAMIN 10-325 MG TAB PO PRN (21:00)
[2024-01-15] MEDS ORDERED: ACETAMINOPHEN 325 MG TABLET PO PRN (21:00)
[2024-01-15] MEDS ORDERED: DEXTROSE 50% JECT 50 ML DISP.SYRIN ONE (21:10)
[2024-01-15] MEDS ORDERED: INSULIN Lispro 100 UNITS/ML, 3 ML VIAL (humaLOG) ONE (21:49)
[2024-01-15] MEDS: INSULIN LISPRO SLIDING SCALE 100 UNITS/ML, 3 ML VIAL (humaLOG) SUBCUT PRN (21:50)
[2024-01-15] MEDS: CARVEDILOL 6.25 MG TABLET (COREG) PO SCH (21:54)
[2024-01-15 22:30] VITALS: O2SAT 96
[2024-01-15] MEDS ORDERED: hydrALAZINE HCL 20 MG/ML VIAL IVP PRN (22:30)
[2024-01-15] MEDS: DONEPEZIL HCL 5 MG TABLET (ARICEPT) PO SCH (23:06)
[2024-01-15] MEDS: traZODone HCL 50 MG TABLET (DESYREL) PO PRN (23:06)
[2024-01-15] MEDS: ATORVASTATIN 20 MG TABLET PO SCH (23:06)
[2024-01-15 23:56] LABS: BILIRUBIN,URINE 1+ (NEGATIVE); BLOOD, URINE NEGATIVE (NEGATIVE); CLARITY/URINE CLOUDY (CLEAR); COLOR,URINE YELLOW (YELLOW); GLUCOSE,URINE NEGATIVE (NEGATIVE); KETONES,URINE TRACE (NEGATIVE); LEUKOCYTE ESTERASE ,URINE 2+ (NEGATIVE); NITRITE, URINE NEGATIVE (NEGATIVE); PROTEIN URINE 2+ (NEGATIVE); UROBILINOGEN,URINE 0.2 (0.2-1.0)
[2024-01-16] VITALS (8 sets, daily range): BP systolic 126–157; PULSE 70–88; RESP 17–20; TEMP 96.9–98; O2SAT 95–100
[2024-01-16 00:31] LABS: BACTERIA,URINE MODERATE /HPF (None Seen); RBC,URINE 0-3 /HPF (0-3); WBC,URINE >100 /HPF (0-3); YEAST,URINE Moderate /HPF (None Seen)
[2024-01-16] MEDS: LORazepam 2 MG/ML VIAL IVP PRN (00:56)
[2024-01-16 05:15] LABS: BASOPHILS # (AUTO) 0.1 K/uL (0.0-0.2); BASOPHILS % (AUTO) 1.3 % (0.0-2.0); EOSINOPHILS # (AUTO) 0.3 K/uL (0.0-0.4); EOSINOPHILS % (AUTO) 4.2 % (0.0-4.0); HEMATOCRIT 35.4 % (36-48); HEMOGLOBIN 11.8 g/dL (12.0-16.0); LYMPHOCYTES # (AUTO) 1.1 K/uL (1.0-5.5); LYMPHOCYTES % (AUTO) 16.6 % (20.5-51.5); MEAN CORPUSCULAR HEMOGLOBIN 33 pg (27-31); MEAN CORPUSCULAR HGB CONC 33 % (32-36); MEAN CORPUSCULAR VOLUME 100 fL (79.0-98.0); MONOCYTES # (AUTO) 0.9 K/uL (0.0-1.0); MONOCYTES % (AUTO) 13.6 % (1.7-9.3); NEUTROPHILS # (AUTO) 4.4 K/uL (1.8-7.7); NEUTROPHILS % (AUTO) 64.3 % (40.0-70.0); PLATELET COUNT (AUTO) 195 K/uL (130-430); RED BLOOD CELL COUNT(AUTO) 3.56 MIL/uL (4.2-6.2); RED CELL DISTRIBUTION WIDTH 17.1 % (9.0-15.0); WHITE BLOOD COUNT (AUTO) 6.8 K/uL (4.8-10.8)
[2024-01-16 05:32] LABS: ANION GAP 5 (5-15); CALCIUM 9.2 mg/dL (8.4-11.0); CARBON DIOXIDE 30 mmol/L (23-29); CHLORIDE 102 mmol/L (98-107); CREATININE 2.98 mg/dL (0.55-1.30); GLUCOSE 85 mg/dL (74-106); POTASSIUM 3.6 mmol/L (3.5-5.1); SODIUM SERUM 137 mmol/L (136-145); UREA NITROGEN, BLOOD 26 mg/dL (8-21)
[2024-01-16] MEDS: LEVOTHYROXINE SODIUM 0.05 MG TABLET PO SCH (06:45)
[2024-01-16] MEDS: ASPIRIN 81 MG TAB.CHEW PO SCH (10:28)
[2024-01-16] MEDS: LOSARTAN POTASSIUM 50 MG TABLET (COZAAR) PO SCH (10:32)
[2024-01-16] MEDS: PANTOPRAZOLE SODIUM 40 MG TAB PO ONE (12:20)
[2024-01-16] MEDS: POLYETHYLENE GLYCOL 3350, 17 GM/ POWD.PACK PO ONE (12:20)
[2024-01-16] MEDS ORDERED: iohexoL 350 mgI/mL, 100 ML INFUS..BTL IV ONE (15:55)
[2024-01-16] MEDS: cefTRIAXone 1 GM in D5W 50 ML IV SCH (18:00)
[2024-01-16] MEDS ORDERED: DOCUSATE SODIUM 100 MG CAPSULE PO SCH (21:00)
[2024-01-16] MEDS ORDERED: HEPARIN SODIUM,PORCINE 5,000 UNITS/ML VIAL SUBCUT SCH (21:00)
[2024-01-16] MEDS ORDERED: SENNA 8.8 MG/5 ML UDC GT SCH (21:00)
[2024-01-17] MEDS ORDERED: LOSARTAN POTASSIUM 25 MG TABLET PO SCH (09:00)
[2024-01-17] MEDS ORDERED: ATORVASTATIN 20 MG TABLET PO SCH (09:00)
[2024-01-17] MEDS ORDERED: PANTOPRAZOLE SODIUM 40 MG TAB PO SCH (09:00)
[2024-01-17] MEDS ORDERED: POLYETHYLENE GLYCOL 3350, 17 GM/ POWD.PACK PO SCH (09:00)
== END 2024-01-16 20:26 | disposition short-term general hospital (02) | DRG 73 ==
LOC: SED 14:08 → STU 20:52
PROVIDERS: ADMIT Internal Medicine; ATTEND Internal Medicine
DX: E11.43 Type 2 diabetes mellitus with diabetic autonomic (poly)neuropathy (principal); N18.6 End stage renal disease; N39.0 Urinary tract infection, site not specified; I50.22 Chronic systolic (congestive) heart failure; K55.1 Chronic vascular disorders of intestine; K59.00 Constipation, unspecified; E03.9 Hypothyroidism, unspecified; E78.5 Hyperlipidemia, unspecified; K31.84 Gastroparesis; I35.0 Nonrheumatic aortic (valve) stenosis; Z66 Do not resuscitate; I25.5 Ischemic cardiomyopathy; F03.90 Unspecified dementia, unspecified severity, without behavioral disturbance, psychotic disturbance, mood disturbance, and anxiety; I11.0 Hypertensive heart disease with heart failure; I25.10 Atherosclerotic heart disease of native coronary artery without angina pectoris; I25.2 Old myocardial infarction; Z90.49 Acquired absence of other specified parts of digestive tract; Z99.2 Dependence on renal dialysis; Z79.82 Long term (current) use of aspirin; Z79.899 Other long term (current) drug therapy
CPT/HCPCS: 36415; 72191; 74175; 76705; 80048; 80076; 81000; 81001; 81015; 82948; 83605; 83690; 84484; 85025; 87040; 87086; 93005; 96372; 99285; G0378; J0696; J2060; J7060; Q9967

== ENCOUNTER 2024-02-04 21:53 | Emergency (ER) | payer MEDICARE ==
[~2024-02-04] VITALS: Ht 162.6 cm; Wt 54.4 kg
[2024-02-04 22:10] VITALS: BP_SYST 166; PULSE 95; RESP 16; TEMP 98.1; O2SAT 98
[2024-02-05 00:05] LABS: BASOPHILS % (AUTO) 0.6 % (0.0-2.0); EOSINOPHILS # (AUTO) 0.1 K/uL (0.0-0.4); HEMATOCRIT 30.8 % (36-48); HEMOGLOBIN 10.5 g/dL (12.0-16.0); LYMPHOCYTES # (AUTO) 0.4 K/uL (1.0-5.5); LYMPHOCYTES % (AUTO) 10.2 % (20.5-51.5); MEAN CORPUSCULAR HEMOGLOBIN 33 pg (27-31); MEAN CORPUSCULAR HGB CONC 34 % (32-36); MEAN CORPUSCULAR VOLUME 96 fL (79.0-98.0); MONOCYTES # (AUTO) 0.4 K/uL (0.0-1.0); MONOCYTES % (AUTO) 9.7 % (1.7-9.3); NEUTROPHILS # (AUTO) 3.1 K/uL (1.8-7.7); NEUTROPHILS % (AUTO) 77.5 % (40.0-70.0); PLATELET COUNT (AUTO) 90 K/uL (130-430); RED BLOOD CELL COUNT(AUTO) 3.22 MIL/uL (4.2-6.2); RED CELL DISTRIBUTION WIDTH 16.5 % (9.0-15.0); WHITE BLOOD COUNT (AUTO) 3.9 K/uL (4.8-10.8)
[2024-02-05] MEDS: MAGNESIUM CITRATE 300 ML ORAL SOLUTION PO ONE (00:05)
[2024-02-05 00:14] LABS: ANION GAP 2 (5-15); CALCIUM 8.9 mg/dL (8.4-11.0); CARBON DIOXIDE 37 mmol/L (23-29); CHLORIDE 98 mmol/L (98-107); CREATININE 1.73 mg/dL (0.55-1.30); GLUCOSE 237 mg/dL (74-106); SODIUM SERUM 137 mmol/L (136-145); UREA NITROGEN, BLOOD 18 mg/dL (8-21)
[2024-02-05 00:17] LABS: ALANINE AMINOTRANSFERASE 17 U/L (12-78); ALBUMIN 2.6 g/dL (3.4-4.8); ASPARTATE AMINOTRANSFERASE 29 U/L (10-37); BILIRUBIN,DIRECT 0.2 mg/dL (0.0-0.3); LIPASE 17 U/L (16-77); TOTAL BILIRUBIN 0.6 mg/dL (0.0-1.0)
[2024-02-05] MEDS ORDERED: POLY17PO4 PO (00:41)
[2024-02-05] MEDS: POTASSIUM CHLORIDE 20 MEQ TABLET.ER PO ONE (01:05)
[2024-02-05 04:40] VITALS: BP_SYST 130; PULSE 91; RESP 16; TEMP 98; O2SAT 100
== END 2024-02-05 04:12 | disposition home or self-care (01) ==
LOC: SED 21:53
DX: K59.00 Constipation, unspecified (principal); R10.9 Unspecified abdominal pain; E87.6 Hypokalemia; I11.0 Hypertensive heart disease with heart failure; I50.9 Heart failure, unspecified; I12.0 Hypertensive chronic kidney disease with stage 5 chronic kidney disease or end stage renal disease; E11.22 Type 2 diabetes mellitus with diabetic chronic kidney disease; N18.6 End stage renal disease; Z79.4 Long term (current) use of insulin; Z85.038 Personal history of other malignant neoplasm of large intestine; Z79.899 Other long term (current) drug therapy
CPT/HCPCS: 36415; 80048; 80076; 83690; 85025; 99284

== ENCOUNTER 2024-02-19 13:14 | Emergency (ER) | payer MEDICARE ==
[~2024-02-19] VITALS: Ht 154.9 cm; Wt 54.4 kg
[~2024-02-19 13:14] MED LIST changes: +POLY17PO4 PO; -VENL150C4 PO; +VENL150C5 PO
[2024-02-19 13:25] VITALS: BP_SYST 158; PULSE 83; RESP 18; TEMP 98.3; O2SAT 100
[2024-02-19 14:44] LABS: BASOPHILS % (AUTO) 0.5 % (0.0-2.0); EOSINOPHILS # (AUTO) 0.1 K/uL (0.0-0.4); EOSINOPHILS % (AUTO) 2.1 % (0.0-4.0); HEMATOCRIT 30.6 % (36-48); HEMOGLOBIN 10.6 g/dL (12.0-16.0); LYMPHOCYTES # (AUTO) 0.6 K/uL (1.0-5.5); LYMPHOCYTES % (AUTO) 14.8 % (20.5-51.5); MEAN CORPUSCULAR HEMOGLOBIN 33 pg (27-31); MEAN CORPUSCULAR HGB CONC 35 % (32-36); MEAN CORPUSCULAR VOLUME 94 fL (79.0-98.0); MONOCYTES # (AUTO) 0.5 K/uL (0.0-1.0); MONOCYTES % (AUTO) 12.6 % (1.7-9.3); NEUTROPHILS # (AUTO) 2.7 K/uL (1.8-7.7); PLATELET COUNT (AUTO) 116 K/uL (130-430); RED BLOOD CELL COUNT(AUTO) 3.26 MIL/uL (4.2-6.2); RED CELL DISTRIBUTION WIDTH 17.2 % (9.0-15.0); WHITE BLOOD COUNT (AUTO) 3.8 K/uL (4.8-10.8)
[2024-02-19 14:45] LABS: ANION GAP 3 (5-15); CALCIUM 8.7 mg/dL (8.4-11.0); CARBON DIOXIDE 36 mmol/L (23-29); CHLORIDE 103 mmol/L (98-107); CREATININE 1.88 mg/dL (0.55-1.30); GLUCOSE 232 mg/dL (74-106); POTASSIUM 3.1 mmol/L (3.5-5.1); SODIUM SERUM 142 mmol/L (136-145); UREA NITROGEN, BLOOD 15 mg/dL (8-21)
[2024-02-19] MEDS: IPRATROPIUM/ALBUTEROL SULFATE 3 ML AMPUL.NEB (DUONEB) INH ONE (15:06)
[2024-02-19] MEDS ORDERED: NALOXONE HCL 2 MG/2 ML SYR ONE (16:04)
[2024-02-19] MEDS ORDERED: ONDANSETRON HCL 4 MG/2 ML VIAL ONE (16:05)
[2024-02-19] MEDS: NALOXONE HCL 2 MG/2 ML SYR (NARCAN) IVP ONE (16:26)
[2024-02-19] MEDS ORDERED: ALBMDI INH (16:35)
[2024-02-19] MEDS ORDERED: NALO4SPR NS (16:39)
[2024-02-19] MEDS: ONDANSETRON HCL 4 MG/2 ML VIAL IVP ONE (16:44)
[2024-02-19] MEDS: POTASSIUM CHLORIDE 20 MEQ/PKT PACKET PO ONE (16:44)
[2024-02-19 16:58] VITALS: BP_SYST 150; PULSE 67; RESP 18; TEMP 98.3; O2SAT 95
== END 2024-02-19 16:58 ==
LOC: SED 13:14
DX: T40.2X1A Poisoning by other opioids, accidental (unintentional), initial encounter (principal); R06.02 Shortness of breath; I12.9 Hypertensive chronic kidney disease with stage 1 through stage 4 chronic kidney disease, or unspecified chronic kidney disease; E11.22 Type 2 diabetes mellitus with diabetic chronic kidney disease; N18.9 Chronic kidney disease, unspecified; Z85.038 Personal history of other malignant neoplasm of large intestine; Y92.89 Other specified places as the place of occurrence of the external cause
CPT/HCPCS: 99285; 96374; 71045; 80048; 83880; 85025; 84484; 36415; 93005; 94640; J2405; J2310

== ENCOUNTER 2024-03-19 14:15 | Inpatient (IN) | payer MEDICARE, OTHER ==
[~2024-03-19] VITALS: Ht 152.4 cm; Wt 56.0 kg
[2024-03-19 14:15] VITALS: BP_SYST 159; PULSE 78; RESP 18; TEMP 96.8; O2SAT 96
[~2024-03-19 14:15] MED LIST changes: +ALBMDI INH; +NALO4SPR NS
[2024-03-19] MEDS: DEXTROSE 50% JECT 50 ML DISP.SYRIN IVP ONE (15:05)
[2024-03-19 15:19] LABS: BASOPHILS % (AUTO) 1.3 % (0.0-2.0); EOSINOPHILS # (AUTO) 0.1 K/uL (0.0-0.4); EOSINOPHILS % (AUTO) 3.3 % (0.0-4.0); HEMATOCRIT 36.5 % (36-48); HEMOGLOBIN 12.3 g/dL (12.0-16.0); LYMPHOCYTES # (AUTO) 0.5 K/uL (1.0-5.5); LYMPHOCYTES % (AUTO) 18.8 % (20.5-51.5); MEAN CORPUSCULAR HEMOGLOBIN 32 pg (27-31); MEAN CORPUSCULAR HGB CONC 34 % (32-36); MEAN CORPUSCULAR VOLUME 95 fL (79.0-98.0); MONOCYTES # (AUTO) 0.6 K/uL (0.0-1.0); MONOCYTES % (AUTO) 19.8 % (1.7-9.3); NEUTROPHILS # (AUTO) 1.6 K/uL (1.8-7.7); NEUTROPHILS % (AUTO) 56.8 % (40.0-70.0); PLATELET COUNT (AUTO) 106 K/uL (130-430); RED BLOOD CELL COUNT(AUTO) 3.85 MIL/uL (4.2-6.2); RED CELL DISTRIBUTION WIDTH 19.2 % (9.0-15.0); WHITE BLOOD COUNT (AUTO) 2.9 K/uL (4.8-10.8)
[2024-03-19] MEDS: D10W 1,000 ML IV SCH (15:22)
[2024-03-19 15:41] LABS: ALBUMIN 2.1 g/dL (3.4-4.8); ANION GAP 7 (5-15); ASPARTATE AMINOTRANSFERASE 11 U/L (10-37); BILIRUBIN,DIRECT 0.2 mg/dL (0.0-0.3); CALCIUM 8.6 mg/dL (8.4-11.0); CARBON DIOXIDE 28 mmol/L (23-29); CHLORIDE 104 mmol/L (98-107); CREATININE 2.96 mg/dL (0.55-1.30); GLUCOSE 155 mg/dL (74-106); POTASSIUM 3.4 mmol/L (3.5-5.1); SODIUM SERUM 139 mmol/L (136-145); TOTAL BILIRUBIN 0.6 mg/dL (0.0-1.0); TOTAL PROTEIN, SERUM 5.6 g/dL (6.4-8.3); UREA NITROGEN, BLOOD 38 mg/dL (8-21)
[2024-03-19 16:12] LABS: ALANINE AMINOTRANSFERASE 8 U/L (12-78)
[2024-03-19 16:33] LABS: BILIRUBIN,URINE 1+ (NEGATIVE); CLARITY/URINE SL CLOUDY (CLEAR); COLOR,URINE YELLOW (YELLOW); GLUCOSE,URINE NEGATIVE (NEGATIVE); KETONES,URINE TRACE (NEGATIVE); LEUKOCYTE ESTERASE ,URINE 3+ (NEGATIVE); NITRITE, URINE NEGATIVE (NEGATIVE); PROTEIN URINE 1+ (NEGATIVE); UROBILINOGEN,URINE 0.2 (0.2-1.0)
[2024-03-19 16:43] LABS: BLOOD, URINE TRACE (NEGATIVE)
[2024-03-19 16:57] LABS: OPIATE, URINE POSITIVE (NEG <=100); URINE OXYCODONE SCREEN NEGATIVE (NEG <=100)
[2024-03-19 16:58] LABS: BARBITURATE, URINE NEGATIVE (NEG <=200); BENZODIAZEPINE, URINE NEGATIVE (NEG <=150); CANNABINOID, URINE NEGATIVE (NEG <=50); COCAINE, URINE NEGATIVE (NEG <=150); METHAMPHETAMINES SCREEN,URINE NEGATIVE (NEG <=500); PHENCYCLIDINE SCREEN,URINE NEGATIVE (NEG <=25); UR TRICYCLIC ANTIDEPRESSANTS NEGATIVE (NEG <=300); URINE AMPHETAMINE NEGATIVE (NEG <=500); URINE METHADONE NEGATIVE (NEG <=200)
[2024-03-19] MEDS: hydrALAZINE HCL 20 MG/ML VIAL IVP ONE (17:15)
[2024-03-19 17:24] LABS: BACTERIA,URINE FEW /HPF (None Seen); WBC,URINE 50-80 /HPF (0-3)
[2024-03-19 17:25] LABS: YEAST,URINE Many /HPF (None Seen)
[2024-03-19] MEDS ORDERED: NALOXONE HCL NS SCH (18:30)
[2024-03-19] MEDS ORDERED: ALBUTEROL SULFATE 0.083% 2.5 MG/3 ML VIAL.NEB INH PRN (18:30)
[2024-03-19] MEDS: ATENOLOL 50 MG TABLET (TENORMIN) PO SCH (19:04)
[2024-03-19] MEDS: amLODIPine BESYLATE 10 MG TABLET PO SCH (19:04)
[2024-03-19] MEDS: D10W 250 ML IV SCH (19:34)
[2024-03-19] MEDS: PIPERACILLIN/TAZOBACTAM 2.25 GM in D5W 50 ML IV SCH (19:46)
[2024-03-19 20:05] VITALS: BP_SYST 167; PULSE 76; O2SAT 95
[2024-03-19] MEDS: traZODone HCL 50 MG TABLET (DESYREL) PO SCH (22:17)
[2024-03-19] MEDS: hydrALAZINE HCL 25 MG TABLET PO SCH (22:18)
[2024-03-19] MEDS: FUROSEMIDE 40 MG TABLET PO SCH (22:18)
[2024-03-19] MEDS: DONEPEZIL HCL 5 MG TABLET (ARICEPT) PO SCH (22:19)
[2024-03-20] VITALS (9 sets, daily range): BP systolic 75–136; PULSE 41–71; RESP 16–20; TEMP 97.5–98; O2SAT 97–99
[2024-03-20 06:10] LABS: BASOPHILS % (AUTO) 0.8 % (0.0-2.0); HEMATOCRIT 36.5 % (36-48); HEMOGLOBIN 12.5 g/dL (12.0-16.0); LYMPHOCYTES # (AUTO) 0.3 K/uL (1.0-5.5); MEAN CORPUSCULAR HEMOGLOBIN 32 pg (27-31); MEAN CORPUSCULAR HGB CONC 34 % (32-36); MEAN CORPUSCULAR VOLUME 94 fL (79.0-98.0); MONOCYTES # (AUTO) 0.5 K/uL (0.0-1.0); MONOCYTES % (AUTO) 16.8 % (1.7-9.3); NEUTROPHILS # (AUTO) 2.1 K/uL (1.8-7.7); NEUTROPHILS % (AUTO) 70.4 % (40.0-70.0); PLATELET COUNT (AUTO) 109 K/uL (130-430); RED CELL DISTRIBUTION WIDTH 19.3 % (9.0-15.0)
[2024-03-20 06:43] LABS: ALBUMIN 2.2 g/dL (3.4-4.8); ANION GAP 11 (5-15); ASPARTATE AMINOTRANSFERASE 12 U/L (10-37); CALCIUM 8.5 mg/dL (8.4-11.0); CARBON DIOXIDE 27 mmol/L (23-29); CHLORIDE 105 mmol/L (98-107); GLUCOSE 124 mg/dL (74-106); POTASSIUM 3.1 mmol/L (3.5-5.1); SODIUM SERUM 143 mmol/L (136-145); TOTAL BILIRUBIN 0.6 mg/dL (0.0-1.0); TOTAL PROTEIN, SERUM 5.4 g/dL (6.4-8.3); UREA NITROGEN, BLOOD 37 mg/dL (8-21)
[2024-03-20 07:18] LABS: ALANINE AMINOTRANSFERASE 8 U/L (12-78)
[2024-03-20] MEDS: LEVOTHYROXINE SODIUM 0.05 MG TABLET PO SCH (07:20)
[2024-03-20] MEDS: VITAMIN B COMPLEX 1 CAP/TAB PO SCH (09:00)
[2024-03-20] MEDS: POLYETHYLENE GLYCOL 3350, 17 GM/ POWD.PACK PO SCH (09:00)
[2024-03-20] MEDS: ISOSORBIDE MONONITRATE 30 MG TAB.ER.24H PO SCH (10:36)
[2024-03-20] MEDS: ATORVASTATIN 20 MG TABLET PO SCH (10:38)
[2024-03-20] MEDS: SEVELAMER CARBONATE 800 MG TABLET PO SCH (10:39)
[2024-03-20] MEDS: ASPIRIN 81 MG TABLET(ECOTRIN) PO SCH (10:39)
[2024-03-20] MEDS: LOSARTAN POTASSIUM 50 MG TABLET (COZAAR) PO SCH (10:40)
[2024-03-20] MEDS: CYANOCOBALAMIN (VITAMIN B-12) 1,000 MCG TABLET PO SCH (10:41)
[2024-03-20] MEDS: VENLAFAXINE HCL 50 MG TABLET PO SCH (10:45)
[2024-03-20] MEDS: POTASSIUM CHLORIDE 20 MEQ/PKT PACKET PO ONE (13:42)
[2024-03-20] MEDS: MIDODRINE HCL 5 MG TABLET (PROAMATINE) PO ONE (18:08)
[2024-03-21] VITALS (16 sets, daily range): BP systolic 42–116; PULSE 41–60; RESP 8–16; TEMP 96–98.6; O2SAT 95–100
[2024-03-21] MEDS: calcitrioL 0.25 MCG CAPSULE PO SCH (09:06)
[2024-03-21] MEDS: NS 500 ML IV ONE (16:00)
[2024-03-21] MEDS: HYDROCORTISONE SOD SUCC 100 MG/2 ML VIAL IVP ONE (17:02)
[2024-03-21] MEDS: DOPamine PREMIX 250 ML IV PRN (21:42)
[2024-03-21] MEDS: DOPamine PREMIX 250 ML IV ONE (22:01)
[2024-03-22] VITALS (45 sets, daily range): BP systolic 68–158; PULSE 50–67; RESP 7–15; TEMP 96–97.4; O2SAT 95–100
[2024-03-22] MEDS ORDERED: NOREPINEPHRINE BITARTRATE 4 MG in NS 246 ML IV PRN (00:45)
[2024-03-22] MEDS: VANCOMYCIN HCL 1000 MG/VIAL IV ONE (01:09)
[2024-03-22] MEDS: HYDROCORTISONE SOD SUCC 100 MG/2 ML VIAL IVP ONE (01:30)
[2024-03-22] MEDS: NS 500 ML IV ONE (01:35)
[2024-03-22] MEDS: VANCOMYCIN HCL 1,000 MG in NS 250 ML IV ONE (02:57)
[2024-03-22 04:35] LABS: BASOPHILS % (AUTO) 0.2 % (0.0-2.0); HEMATOCRIT 37.9 % (36-48); HEMOGLOBIN 12.8 g/dL (12.0-16.0); LYMPHOCYTES # (AUTO) 0.1 K/uL (1.0-5.5); LYMPHOCYTES % (AUTO) 1.1 % (20.5-51.5); MEAN CORPUSCULAR HEMOGLOBIN 32 pg (27-31); MEAN CORPUSCULAR HGB CONC 34 % (32-36); MEAN CORPUSCULAR VOLUME 94 fL (79.0-98.0); MONOCYTES # (AUTO) 0.8 K/uL (0.0-1.0); MONOCYTES % (AUTO) 5.9 % (1.7-9.3); NEUTROPHILS # (AUTO) 12.1 K/uL (1.8-7.7); NEUTROPHILS % (AUTO) 92.8 % (40.0-70.0); PLATELET COUNT (AUTO) 105 K/uL (130-430); RED BLOOD CELL COUNT(AUTO) 4.05 MIL/uL (4.2-6.2); RED CELL DISTRIBUTION WIDTH 19.4 % (9.0-15.0); WHITE BLOOD COUNT (AUTO) 13.1 K/uL (4.8-10.8)
[2024-03-22 05:07] LABS: ALANINE AMINOTRANSFERASE 7 U/L (12-78); ALBUMIN 2.1 g/dL (3.4-4.8); ANION GAP 12 (5-15); ASPARTATE AMINOTRANSFERASE 17 U/L (10-37); CARBON DIOXIDE 25 mmol/L (23-29); CHLORIDE 96 mmol/L (98-107); CREATININE 3.57 mg/dL (0.55-1.30); FREE T4 (FREE THYROXINE) 1.1 ng/dl (0.8-1.5); GLUCOSE 203 mg/dL (74-106); PHOSPHORUS 3.8 mg/dL (2.7-4.5); POTASSIUM 3.2 mmol/L (3.5-5.1); SODIUM SERUM 133 mmol/L (136-145); THYROID STIMULATING HORMONE 4.13 uIu/mL (0.36-3.74); TOTAL BILIRUBIN 0.6 mg/dL (0.0-1.0); TOTAL PROTEIN, SERUM 5.8 g/dL (6.4-8.3); UREA NITROGEN, BLOOD 40 mg/dL (8-21)
[2024-03-22 05:53] LABS: CHOLESTEROL 184 mg/dL (<200); HDL CHOLESTEROL 68 mg/dL (>55); TRIGLYCERIDES 80 mg/dL (30-150)
[2024-03-22] MEDS: HYDROCORTISONE SOD SUCC 100 MG/2 ML VIAL IVP SCH (06:12)
[2024-03-22] MEDS: ALBUMIN HUMAN 25% 50 ML IV SCH (09:57)
[2024-03-22] MEDS: DOPamine PREMIX 250 ML IV PRN (16:30)
[2024-03-22] MEDS ORDERED: DEXTROSE 50% JECT 50 ML DISP.SYRIN IVP PRN (17:30)
[2024-03-22] MEDS ORDERED: *PPN PER PHARMACY XX PRN (21:00)
[2024-03-23] VITALS (25 sets, daily range): BP systolic 115–169; PULSE 54–71; RESP 7–17; TEMP 96.2–97.7; O2SAT 91–100
[2024-03-23] MEDS: INSULIN REGULAR, HUMAN 100 UNITS/ML, 3 ML VIAL (humuLIN R) SUBCUT PRN (00:10)
[2024-03-23 06:40] LABS: BASOPHILS % (AUTO) 0.1 % (0.0-2.0); HEMATOCRIT 26.7 % (36-48); HEMOGLOBIN 9.2 g/dL (12.0-16.0); LYMPHOCYTES # (AUTO) 0.2 K/uL (1.0-5.5); LYMPHOCYTES % (AUTO) 1.4 % (20.5-51.5); MEAN CORPUSCULAR HEMOGLOBIN 33 pg (27-31); MEAN CORPUSCULAR HGB CONC 35 % (32-36); MEAN CORPUSCULAR VOLUME 94 fL (79.0-98.0); MONOCYTES # (AUTO) 0.4 K/uL (0.0-1.0); MONOCYTES % (AUTO) 4.2 % (1.7-9.3); NEUTROPHILS # (AUTO) 9.9 K/uL (1.8-7.7); NEUTROPHILS % (AUTO) 94.3 % (40.0-70.0); PLATELET COUNT (AUTO) 66 K/uL (130-430); RED BLOOD CELL COUNT(AUTO) 2.84 MIL/uL (4.2-6.2); RED CELL DISTRIBUTION WIDTH 19.7 % (9.0-15.0); WHITE BLOOD COUNT (AUTO) 10.5 K/uL (4.8-10.8)
[2024-03-23 07:24] LABS: ALANINE AMINOTRANSFERASE 12 U/L (12-78); ALBUMIN 2.3 g/dL (3.4-4.8); ANION GAP 17 (5-15); ASPARTATE AMINOTRANSFERASE 11 U/L (10-37); CALCIUM 8.3 mg/dL (8.4-11.0); CARBON DIOXIDE 22 mmol/L (23-29); CHLORIDE 100 mmol/L (98-107); CREATININE 4.05 mg/dL (0.55-1.30); GLUCOSE 123 mg/dL (74-106); PHOSPHORUS 4.5 mg/dL (2.7-4.5); POTASSIUM 3.5 mmol/L (3.5-5.1); SODIUM SERUM 139 mmol/L (136-145); TOTAL BILIRUBIN 0.5 mg/dL (0.0-1.0); TRIGLYCERIDES 66 mg/dL (30-150); UREA NITROGEN, BLOOD 43 mg/dL (8-21)
[2024-03-23] MEDS: EPOETIN ALFA 10,000 UNITS/ML VIAL SUBCUT SCH (18:27)
[2024-03-23] MEDS: SODIUM CHLORIDE IV SCH (20:21)
[2024-03-23] MEDS: TPN PERIPHERAL IV SCH (20:21)
[2024-03-23] MEDS: [UNRECOGNIZED DRUG - OTHER] IV SCH (20:21)
[2024-03-23] MEDS: POTASSIUM CHLORIDE IV SCH (20:21)
[2024-03-24] VITALS (11 sets, daily range): BP systolic 126–174; PULSE 60–76; RESP 10–20; TEMP 96.1–98.7; O2SAT 100
[2024-03-24 04:42] LABS: HEMOGLOBIN 9.7 g/dL (12.0-16.0); LYMPHOCYTES # (AUTO) 0.1 K/uL (1.0-5.5); MEAN CORPUSCULAR HGB CONC 34 % (32-36); NEUTROPHILS # (AUTO) 7.7 K/uL (1.8-7.7); NEUTROPHILS % (AUTO) 95.4 % (40.0-70.0)
[2024-03-24 05:17] LABS: HEMATOCRIT 28.4 % (36-48); LYMPHOCYTES % (AUTO) 1.4 % (20.5-51.5); MEAN CORPUSCULAR HEMOGLOBIN 32 pg (27-31); MEAN CORPUSCULAR VOLUME 94 fL (79.0-98.0); MONOCYTES # (AUTO) 0.3 K/uL (0.0-1.0); MONOCYTES % (AUTO) 3.2 % (1.7-9.3); RED BLOOD CELL COUNT(AUTO) 3.01 MIL/uL (4.2-6.2); RED CELL DISTRIBUTION WIDTH 19.8 % (9.0-15.0)
[2024-03-24 05:18] LABS: ALANINE AMINOTRANSFERASE 11 U/L (12-78); ANION GAP 9 (5-15); ASPARTATE AMINOTRANSFERASE 6 U/L (10-37); CARBON DIOXIDE 30 mmol/L (23-29); CHLORIDE 101 mmol/L (98-107); CREATININE 2.86 mg/dL (0.55-1.30); GLUCOSE 202 mg/dL (74-106); POTASSIUM 3.9 mmol/L (3.5-5.1); SODIUM SERUM 140 mmol/L (136-145); TOTAL BILIRUBIN 0.4 mg/dL (0.0-1.0); TOTAL PROTEIN, SERUM 4.9 g/dL (6.4-8.3); UREA NITROGEN, BLOOD 27 mg/dL (8-21)
[2024-03-24 05:27] LABS: PLATELET COUNT (AUTO) 71 K/uL (130-430)
[2024-03-24] MEDS ORDERED: SODIUM CHLORIDE IV SCH (21:00)
[2024-03-24] MEDS ORDERED: POTASSIUM CHLORIDE IV SCH (21:00)
[2024-03-24] MEDS ORDERED: [UNRECOGNIZED DRUG - OTHER] IV SCH (21:00)
[2024-03-24] MEDS ORDERED: TPN PERIPHERAL IV SCH (21:00)
== END 2024-03-24 17:55 | disposition hospice, home (50) | DRG 871 ==
LOC: SED 14:15 → STU 17:25 → SIC 03-21 20:34
PROVIDERS: ADMIT Internal Medicine; ATTEND Internal Medicine
PROC: 5A1D70Z Performance of Urinary Filtration, Intermittent, Less than 6 Hours Per Day (ICD-10-PCS; principal; 2024-03-22)
PROC: 05HY33Z Insertion of Infusion Device into Upper Vein, Percutaneous Approach (ICD-10-PCS; 2024-03-22)
DX: A41.9 Sepsis, unspecified organism (principal); E43 Unspecified severe protein-calorie malnutrition; G93.41 Metabolic encephalopathy; N18.6 End stage renal disease; R57.0 Cardiogenic shock; R65.21 Severe sepsis with septic shock; I12.0 Hypertensive chronic kidney disease with stage 5 chronic kidney disease or end stage renal disease; N39.0 Urinary tract infection, site not specified; E11.649 Type 2 diabetes mellitus with hypoglycemia without coma; E11.22 Type 2 diabetes mellitus with diabetic chronic kidney disease; E03.9 Hypothyroidism, unspecified; N31.9 Neuromuscular dysfunction of bladder, unspecified; E87.6 Hypokalemia; I25.5 Ischemic cardiomyopathy; I35.0 Nonrheumatic aortic (valve) stenosis; E78.5 Hyperlipidemia, unspecified; F03.90 Unspecified dementia, unspecified severity, without behavioral disturbance, psychotic disturbance, mood disturbance, and anxiety; Z66 Do not resuscitate; D69.6 Thrombocytopenia, unspecified; Z68.24 Body mass index [BMI] 24.0-24.9, adult; Z79.899 Other long term (current) drug therapy; Z99.2 Dependence on renal dialysis; Z85.038 Personal history of other malignant neoplasm of large intestine; Z74.01 Bed confinement status; I25.2 Old myocardial infarction
CPT/HCPCS: 36415; 70450-TC; 71045; 80048; 80053; 80061; 80076; 80307; 81000; 81001; 81015; 82948; 83605; 83735; 83880; 84100; 84439; 84443; 84478; 84484; 85025; 87040; 87081; 87086; 90935; 93005; 94070; 96365; 99291; G0378; J0885; J1265; J1720; J2543; J3370; J3475; J3480; J7050; J7060; J7131; P9046